=== PATIENT | male | born 1960 | race Caucasian/White ===

== ENCOUNTER → 2017-01-01 | Outpatient (CLI) | payer BC ==
[~2017-01-01] MED LIST: GADAVIST IV PRN
--- NOTE | 2017-01-01 08:52 | DIAGNOSTIC IMAGING REPORT ---
MRI OF THE BRAIN COMBO CLINICAL HISTORY: Memory loss. COMPARISON STUDY: No priors. TECHNIQUE: MRI of the brain was performed utilizing various T1 and T2-weighted sequences in the axial, sagittal, and coronal planes. Contrast-enhanced sequences were acquired following the administration of 10 cc of Gadavist. FINDINGS: Brain parenchyma: There is minimal patchy subcortical and periventricular microangiopathic disease. The brain parenchyma is otherwise normal in appearance. There is no hemorrhage or mass effect. There is no restricted diffusion to suggest acute ischemia. No enhancing mass lesion is identified on the postcontrast images. Johnson-white matter differentiation is preserved. No extra-axial fluid collection is seen. The cerebellar tonsils are normal in configuration. Ventricles, sulci, and cisterns: Normal in configuration. Pituitary and sella: Unremarkable. Intracranial vasculature: Normal flow voids are maintained at the skull base. Orbits: The bony orbits are grossly intact. Orbital contents are normal in appearance. Sinuses and mastoids: There is a tiny retention cyst in the left maxillary antrum. The remaining paranasal sinuses and mastoid air cells are clear. Calvarium: Unremarkable. Cervical cord: Partially visualized cervical spinal cord is normal in morphology and signal intensity. IMPRESSION: No acute intracranial abnormality. Electronically signed by: Tobin Logan M.D. 01/01/2017 8:50 AM Dictated Date/Time: 01/01/2017 8:47 AM
== END | disposition home or self-care (01) ==
LOC: C.MRIBC 07:53
PROVIDERS: ATTEND Psychiatry & Neurology Neurology
DX: I67.9 Cerebrovascular disease, unspecified (principal); R41.3 Other amnesia

== ENCOUNTER 2025-04-05 22:52 | Inpatient (IN) ==
[2025-04-05 23:34] LABS: Appearance Urine Clear (Clear); Glucose Urine UA Negative (Negative)
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
[2025-04-05 23:37] LABS: Hematocrit (blood only) 42.6 % (42.0-52.0); Hemoglobin 14.1 g/dl (14.0-18.0); Immature Granulocytes # (auto) 0.03 K/uL (0.01-0.20); Immature Granulocytes % (auto) 0.4 %; Mean Corpuscular Hemoglobin 30.0 pg (25.0-34.0); Mean Corpuscular Volume 90.6 fL (80.0-100.0); Platelet Count 206 K/uL (130-400); RDW Standard Deviation 47.2 fL (36.4-46.3); Red Blood Count 4.70 M/uL (4.70-6.10); White Blood Count 8.27 K/ul (4.8-10.8)
[2025-04-05 23:54] LABS: Alanine Aminotransferase 21.0 U/L (7-52); Albumin Globulin Ratio 1.8 (0.9-2); Albumin Level 4.6 gm/dl (3.4-5.0); Alkaline Phosphatase 52.0 U/L (34-104); Anion Gap 5.0 (3-11); Bilirubin,Total 0.4 mg/dl (0.2-1.0); Blood Urea Nitrogen 12.0 mg/dl (6-23); Calcium 9.2 mg/dl (8.6-10.3); Carbon Dioxide 30.0 mmol/L (21-32); Chloride 101.0 mmol/L (98-107); Creatinine Clr Calc Pharmacy 97.3 ml/min; Globulin 2.6 gm/dl (2.5-4.0); Glucose 75.0 mg/dl (70-99(Fasting)); Potassium 3.6 mmol/L (3.5-5.1); Sodium 136.0 mmol/L (136-145); Total Protein 7.2 gm/dl (6.0-8.3)
[2025-04-06] LABS: Acetaminophen < 3 ug/ml (10-30); Salicylate < 3.0 mg/dl (3.0-30)
[2025-04-06 00:09] LABS: Thyroid Stimulating Hormone 1.965 uIu/ml (0.300-4.500)
[2025-04-06 00:14] LABS: Amphetamines+Metham, Urine Neg (Neg); MDMA (Ecstacy), Urine Neg (Neg); Marijuana, Urine Neg (Neg)
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
[2025-04-06] MEDS ORDERED: ONDANSETRON INJ 2 MG/ML 2 ML VIAL IV PRN (02:31)
[2025-04-06] MEDS: DEXTROAMPHETAMINE/AMPHETAMINE ER 10 MG CAP PO SCH (09:32)
[2025-04-06] MEDS: ASPIRIN 81 MG ECTAB PO SCH (09:36)
[2025-04-06] MEDS: MEMANTINE HCL 10 MG TAB PO SCH (09:36)
[2025-04-06] MEDS: METOPROLOL SUCC 50MG EXT REL TAB PO SCH (09:37)
[2025-04-06] MEDS: DONEPEZIL HCL 10 MG TAB PO SCH (09:37)
[2025-04-06] MEDS: ROSUVASTATIN CALCIUM 20 MG TAB PO SCH (09:37)
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
[2025-04-06] MEDS: ARIPiprazole 5 MG TAB PO SCH (13:14)
[2025-04-06] MEDS: SERTRALINE HCL 50 MG TABLET PO SCH (13:14)
[2025-04-06] MEDS: LORazepam 0.5 MG TAB PO PRN (13:14)
--- NOTE | 2025-04-06 14:38 | Hospitalist Progress Note ---
Date of Service April 06, 2025 Assessment & Plan (1) Behavior safety risk: (2) Dementia: Plan 64yo male with early onset dementia presenting with increase in behavioral disturbance. 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 Patient does not have any complaints at present and does not wish to be here. He has cats at home and is worried about who will take care of them. #Behavior safety risk/Dementia - workup largely unremarkable. No obvious organic or reversible cause for patient's behavior disturbance. He does have a positive EtOH level Psych consult - see note for medication recommendations, Adderall discontinued. Clonidine recommended, not started yet to avoid too many med changes at one Started abilify 2.5mg BID, ativan 0.5mg TID prn for anxiety. Continue trazadone - consider dose increase if worsening insomnia Restart Zoloft - switch to AM dosing -PT/OT -Case management -One to one observation as needed -Continue Aricept and Namenda #Hypertension -Continue Amlodipine -Continue Lisinopril -Continue Metoprolol #Hyperlipidemia Continue Crestor Dispo; continued inpatient stay for medication adjustments DVT proh: SCD, low risk Admission and Anticipated Discharge Date Admission Date: April 06, 2025 Subjective Patient seen lying in bed in the ER - son is at bedside. Tomas is pleasant but very confused. Does know that he is in the hospital - thinks its 2005 speaks in circles, asking to go home and speak to Heavenly (who is his ex ) denies pain Review of Systems Review of Systems: All systems reviewed & are unremarkable except as noted in Subjective Physical Exam Physical Exam: General: NAD, VS as above Resp: normal respiratory effort, lungs clear to auscultation CV: RRR, no murmur, Abd: normal bowel sounds, non tender, no hepatosplenomegaly Extremities: Moves all extremities, no edema Neuro: A&O x1, pleasant and redirectable Results & Data Results & Data Vital Signs (Past 12 Hours) Vital Signs Pulse Resp BP Pulse Ox O2 Del Method 04/06/25 08:56 70 20 162/87 H 98 Room Air 04/06/25 07:47 79 18 116/70 98 Room Air 04/06/25 06:00 77 20 156/85 H 97 Room Air 04/06/25 03:30 139/78 04/06/25 03:00 77 20 139/79 97 Room Air Laboratory Results cbc and chemistry reviewed UA reviewed PG Care Time/CCT Total # of Minutes Spent Total Time Spent with Patient: Total time spent is greater than 50% in coordination of care (as documented) at patient's floor/unit and/or counseling patient: Coding Level of Care Code 83482 SUB INP/OBS CARE 2/35MIN Diagnoses Behavior safety risk Z91.89 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 G30.0; F02.A18 Dementia type: Alzheimer's Alzheimer's disease onset: early onset Dementia severity: mild Dementia behavioral or psychological symptom: with other behavioral disturbance (2) Dementia Dementia type: Alzheimer's Alzheimer's disease onset: early onset Dementia severity: mild Dementia behavioral or psychological symptom: with other behavioral disturbance Qualified Code(s): G30.0 - Alzheimer's disease with early onset; F02.A18 - Dementia in other diseases classified elsewhere, mild, with other behavioral disturbance
--- NOTE | 2025-04-06 21:17 | Electrocardiogram Report ---
Test Reason : Blood Pressure : */* mmHG Vent. Rate : 71 BPM Atrial Rate : 71 BPM P-R Int : 166 ms QRS Dur : 96 ms QT Int : 420 ms P-R-T Axes : -17 -12 -15 degrees QTcB Int : 456 ms Normal sinus rhythm Minimal voltage criteria for LVH, may be normal variant ( R in aVL ) Borderline ECG When compared with ECG of 15-Sep-2022 12:43, (unconfirmed) T wave inversion now evident in Inferior leads Confirmed by Dimas Valente ([id number]) on 04/06/2025 9:16:44 PM Referred By: REFERRED SELF Confirmed By: Dimas Valente
[2025-04-07 06:30] LABS: Hematocrit (blood only) 39.5 % (42.0-52.0); Hemoglobin 13.4 g/dl (14.0-18.0); Mean Corpuscular Hemoglobin 30.3 pg (25.0-34.0); Mean Corpuscular Volume 89.4 fL (80.0-100.0); Platelet Count 189 K/uL (130-400); RDW Standard Deviation 44.9 fL (36.4-46.3); Red Blood Count 4.42 M/uL (4.70-6.10); White Blood Count 5.62 K/ul (4.8-10.8)
[2025-04-07 06:54] LABS: Anion Gap 6.0 (3-11); Blood Urea Nitrogen 10.0 mg/dl (6-23); Calcium 8.7 mg/dl (8.6-10.3); Carbon Dioxide 30.0 mmol/L (21-32); Chloride 103.0 mmol/L (98-107); Creatinine Clr Calc Pharmacy 115.7 ml/min; Glucose 89.0 mg/dl (70-99(Fasting)); Potassium 3.7 mmol/L (3.5-5.1); Sodium 139.0 mmol/L (136-145)
--- NOTE | 2025-04-07 12:51 | Hospitalist Progress Note ---
Date of Service April 07, 2025 Assessment & Plan (1) Behavior safety risk: (2) Dementia: Plan 64yo male with early onset dementia presenting with increase in behavioral disturbance. 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 Patient does not have any complaints at present and does not wish to be here. He has cats at home and is worried about who will take care of them. #Behavior safety risk/Dementia - workup largely unremarkable. No obvious organic or reversible cause for patient's behavior disturbance. He does have a positive EtOH level Psych consult - see note for medication recommendations, Adderall discontinued. Clonidine recommended, not started yet to avoid too many med changes at one Started abilify 2.5mg BID, ativan 0.5mg TID prn for anxiety. Continue trazadone - consider dose increase if worsening insomnia Restart Zoloft - switch to AM dosing -PT/OT -Case management -One to one observation as needed -Continue Aricept and Namenda per psych: " abilify 2.5mg BID and can titrate up to 15mg total daily dose as consolidated or split dosing. ativan 0.5mg po TID prn for agitation (typically would avoid in dementia but given prominence of anxiety symptoms this may allow for lower dose of antipsychotic use) consider clonidine 0.1mg TD patch qweekly (off-label use for anxiety/agitation) Continue trazodone 50mg HS, if insomnia perists can increase to 100mg HS Restart prior to admission sertraline 150mg daily (had been taking as 50mg qAM and 100mg HS but possible it can contribute to insomnia so prefer morning dosing) Adderall discontinued as per PDMP he has not been taking this since September 2024 and this can increase anxiety and agitation For behavioral emergency: olanzapine 2.5 mg IM or 5mg IM x 1 (DO NOT exceed 10mg per 24 hours, check EKG if IM dose required, NEVER co-administer with IM or IV benzodiazepines). If he returns home, gun should be secured or ideally removed from the home" #Hypertension -Continue Amlodipine -Continue Lisinopril -Continue Metoprolol #Hyperlipidemia Continue Crestor Dispo; continued inpatient stay for medication adjustments DVT proh: SCD, low risk Admission and Anticipated Discharge Date Admission Date: April 06, 2025 Subjective no events reported overnight. He denies pain or any other symptoms. RN at bedside Review of Systems Review of Systems: Limited. Negative except as in HPI Physical Exam Physical Exam: General: NAD, VS as above Resp: normal respiratory effort, lungs clear to auscultation CV: RRR, no murmur, Abd: normal bowel sounds, non tender, no hepatosplenomegaly Extremities: Moves all extremities, no edema Neuro: A&O x1, pleasant and redirectable Results & Data Results & Data Vital Signs (Past 12 Hours) Vital Signs Temp Pulse Resp BP Pulse Ox O2 Del Method 04/07/25 07:45 36.7 C 89 18 137/92 98 Room Air PG Care Time/CCT Total # of Minutes Spent Total Time Spent with Patient: Total time spent is greater than 50% in coordination of care (as documented) at patient's floor/unit and/or counseling patient: Coding Level of Care Code 85141 SUB INP/OBS CARE 2/35MIN Diagnoses Behavior safety risk Z91.89 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
[2025-04-08] MEDS: CHECK CLONIDINE PATCH PLACEMENT SCH (08:50)
[2025-04-08] MEDS: REMOVE CLONIDINE PATCH SCH (09:38)
--- NOTE | 2025-04-08 10:27 | Hospitalist Progress Note ---
Date of Service April 08, 2025 Assessment & Plan (1) Behavior safety risk: (2) Dementia: Plan 64yo male with early onset dementia presenting with increase in behavioral disturbance. 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 Patient does not have any complaints at present and does not wish to be here. He has cats at home and is worried about who will take care of them. #Behavior safety risk/Dementia - workup largely unremarkable. No obvious organic or reversible cause for patient's behavior disturbance. He does have a positive EtOH level Psych consult - see note for medication recommendations, Adderall discontinued. Started abilify 2.5mg BID, ativan 0.5mg TID prn for anxiety. Continue trazadone - consider dose increase if worsening insomnia Restart Zoloft - switched to AM dosing Clonidine patch added 04/08 Case management -One to one observation as needed - elopement risk as desires to go home -Continue Aricept and Namenda #Hypertension -Continue Amlodipine -Continue Lisinopril -Continue Metoprolol #Hyperlipidemia Continue Crestor Dispo; continued inpatient stay for medication adjustments DVT proh: SCD, low risk Admission and Anticipated Discharge Date Admission Date: April 06, 2025 Subjective Patient seen ambulating around the halls with 1:1 able to be redirected to his room no acute complaints, wanting to go home to his cats Review of Systems Review of Systems: All systems reviewed & are unremarkable except as noted in Subjective Physical Exam Physical Exam: General: NAD, VS as above Resp: normal respiratory effort, lungs clear to auscultation CV: RRR, no murmur, Extremities: Moves all extremities, no edema Neuro: A&O x1, Skin: intact, no lesions noted Results & Data Results & Data Vital Signs (Past 12 Hours) Vital Signs Temp Pulse Resp BP Pulse Ox O2 Del Method 04/08/25 06:55 97.5 F L 81 20 156/77 H 97 Room Air 04/08/25 00:18 97.7 F 68 18 146/83 H 98 Room Air PG Care Time/CCT Total # of Minutes Spent Total Time Spent with Patient: Total time spent is greater than 50% in coordination of care (as documented) at patient's floor/unit and/or counseling patient: Coding Level of Care Code 16045 SUB INP/OBS CARE 2/35MIN Diagnoses Behavior safety risk Z91.89 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 G30.0; F02.A18 Dementia type: Alzheimer's Alzheimer's disease onset: early onset Dementia severity: mild Dementia behavioral or psychological symptom: with other behavioral distur bance (2) Dementia Dementia type: Alzheimer's Alzheimer's disease onset: early onset Dementia severity: mild Dementia behavioral or psychological symptom: with other behavioral disturbance Qualified Code(s): G30.0 - Alzheimer's disease with early onset; F02.A18 - Dementia in other diseases classified elsewhere, mild, with other behavioral disturbance
[2025-04-09] MEDS: ACETAMINOPHEN 325 MG TAB PO PRN (09:36)
--- NOTE | 2025-04-09 14:00 | Hospitalist Progress Note ---
Date of Service April 09, 2025 Assessment & Plan (1) Behavior safety risk: (2) Dementia: Plan 64yo male with early onset dementia presenting with increase in behavioral disturbance. 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 Patient does not have any complaints at present and does not wish to be here. He has cats at home and is worried about who will take care of them. #Behavior safety risk/Dementia - workup largely unremarkable. No obvious organic or reversible cause for patient's behavior disturbance. He does have a positive EtOH level Psych consult - see note for medication recommendations, Adderall discontinued. Started abilify 2.5mg BID, ativan 0.5mg TID prn for anxiety. Continue trazodone - consider dose increase if worsening insomnia Restart Zoloft - switched to AM dosing Clonidine patch added 04/08 Case management -One to one observation as needed - elopement risk as desires to go home -Continue Aricept and Namenda #Hypertension -Continue Amlodipine -Continue Lisinopril -Continue Metoprolol #Hyperlipidemia Continue Crestor Dispo; continued inpatient stay for medication adjustments and awaiting safe dispo plan DVT proh: SCD, low risk Admission and Anticipated Discharge Date Admission Date: April 06, 2025 Subjective Patient seen sitting in the chair in his room - 1:1 present at bedside. Patient is frustrated that he is unable to go home. Not wanting to engage in many activities because he is able to do those things at home Called daughter, Jackie for collateral. Reports that was signed 01/24/25 - he signed for himself and there was no oppositions. Jackie states that the behavior that we are reporting here are very different from what she heard from Heavenly. She confirms that Heavenly does not want to be contacted. There is not reason that the information about divorce should be withheld from Tomas, but Jackie reports that sometimes when he is asking about his , family thinks he is asking about his 1st /Jackie's mother. Review of Systems Review of Systems: All systems reviewed & are unremarkable except as noted in Subjective Physical Exam Physical Exam: General: NAD, VS as above Resp: normal respiratory effort, lungs clear to auscultation CV: RRR, no murmur, Extremities: Moves all extremities, no edema Neuro: A&O x1, Skin: intact, no lesions noted Results & Data Results & Data Vital Signs (Past 12 Hours) Vital Signs Temp Pulse Resp BP Pulse Ox O2 Del Method 04/09/25 07:01 97.9 F 73 16 127/77 98 Room Air PG Care Time/CCT Total # of Minutes Spent Total Time Spent with Patient: Total time spent is greater than 50% in coordination of care (as documented) at patient's floor/unit and/or counseling patient: Coding Level of Care Code 42800 SUB INP/OBS CARE 09/09MIN Diagnoses Behavior safety risk Z91.89 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 G30.0; F02.A18 Dementia type: Alzheimer's Alzheimer's disease onset: early onset Dementia severity: mild Dementia behavioral or psychological symptom: with other behavioral disturbance (2) Dementia Dementia type: Alzheimer's Alzheimer's disease onset: early onset Dementia severity: mild Dementia behavioral or psychological symptom: with other behavioral disturbance Qualified Code(s): G30.0 - Alzheimer's disease with early onset; F02.A18 - Dementia in other diseases classified elsewhere, mild, with other behavioral disturbance
--- NOTE | 2025-04-10 10:52 | Hospitalist Progress Note ---
Date of Service April 10, 2025 Assessment & Plan (1) Behavior safety risk: (2) Dementia: Plan 64yo male with early onset dementia presenting with increase in behavioral disturbance. 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 Patient does not have any complaints at present and does not wish to be here. He has cats at home and is worried about who will take care of them. #Behavior safety risk/Dementia - workup largely unremarkable. No obvious organic or reversible cause for patient's behavior disturbance. He does have a positive EtOH level Psych consult - see note for medication recommendations, Adderall discontinued. Started abilify 2.5mg BID, ativan 0.5mg TID prn for anxiety. Continue trazodone - consider dose increase if worsening insomnia Restart Zoloft - switched to AM dosing Clonidine patch added 04/08 Case management -One to one observation as needed - elopement risk as desires to go home -Continue Aricept and Namenda #Hypertension -Continue Amlodipine -Continue Lisinopril -Continue Metoprolol #Hyperlipidemia Continue Crestor Dispo; continued inpatient stay for medication adjustments and awaiting safe dispo plan DVT proh: SCD, low risk Admission and Anticipated Discharge Date Admission Date: April 06, 2025 Subjective Patient seen ambulating in the [facility] 1:1 nursing staff reports he has been asking to go home but has been pleasant Review of Systems Review of Systems: All systems reviewed & are unremarkable except as noted in Subjective Physical Exam Physical Exam: General: NAD, vitals as above, ambulating in the hall Pulm: breathing unlabored CV: well perfused extremities: moves all extremities Results & Data Results & Data Vital Signs (Past 12 Hours) Vital Signs Temp Pulse Resp BP Pulse Ox O2 Del Method 04/10/25 06:59 97.9 F 87 16 122/71 96 Room Air 04/09/25 23:46 97.7 F 70 18 126/73 96 Room Air PG Care Time/CCT Total # of Minutes Spent Total Time Spent with Patient: Total time spent is greater than 50% in coordination of care (as documented) at patient's floor/unit and/or counseling patient: Coding Level of Care Code 81236 SUB INP/OBS CARE 09/09MIN Diagnoses Behavior safety risk Z91.89 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 G30.0; F02.A18 Dementia type: Alzheimer's Alzheimer's disease onset: early onset Dementia severity: mild Dementia behavioral or psychological symptom: with other behavioral disturbance (2) Dementia Dementia type: Alzheimer's Alzheimer's disease onset: early onset Dementia severity: mild Dementia behavioral or psychological symptom: with other behavioral disturbance Qualified Code(s): G30.0 - Alzheimer's disease with early onset; F02.A18 - Dementia in other diseases classified elsewhere, mild, with other behavioral disturbance
[2025-04-10] MEDS: NICOTINE 14 MG/24 HR PATCH TD SCH (13:53)
[2025-04-11] MEDS: REMOVE NICODERM PATCH SCH (08:22)
--- NOTE | 2025-04-11 09:58 | Hospitalist Progress Note ---
Date of Service April 11, 2025 Assessment & Plan (1) Behavior safety risk: (2) Dementia: Plan 64yo male with early onset dementia presenting with increase in behavioral disturbance. 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 Patient does not have any complaints at present and does not wish to be here. He has cats at home and is worried about who will take care of them. #Behavior safety risk/Dementia - workup largely unremarkable. No obvious organic or reversible cause for patient's behavior disturbance. He does have a positive EtOH level Psych consult - see note for medication recommendations, Adderall discontinued. Started abilify 2.5mg BID, ativan 0.5mg TID prn for anxiety. Continue trazodone - consider dose increase if worsening insomnia Restart Zoloft - switched to AM dosing Clonidine patch added 04/08 Case management -One to one observation as needed - elopement risk as desires to go home -Continue Aricept and Namenda #Hypertension -Continue Amlodipine -Continue Lisinopril -Continue Metoprolol #Hyperlipidemia Continue Crestor Dispo; continued inpatient stay for medication adjustments and awaiting safe dispo plan DVT proh: SCD, low risk Admission and Anticipated Discharge Date Admission Date: April 06, 2025 Supervising Physician Co-Signing Physician Notes Attending Attestation: Chart reviewed, care plan d/w ERIBERTO Lawson. I agree w/ the iglesias components of her documentation. Anthony Enriquez MD Subjective patient seen in his room after getting dressed. Reports feeling well, ready to go for a walk Review of Systems Review of Systems: All systems reviewed & are unremarkable except as noted in Subjective Physical Exam Physical Exam: General: NAD, vitals as above, ambulating in the halls Pulm: breathing unlabored CV: well perfused extremities: moves all extremities Results & Data Results & Data Vital Signs (Past 12 Hours) Vital Signs Temp Pulse Pulse Resp BP BP Pulse Ox 04/11/25 07:28 97.9 F 76 16 126/73 96 04/10/25 22:48 97.7 F 60 18 126/78 96 O2 Del Method 04/11/25 07:28 Room Air 04/10/25 22:48 Room Air PG Care Time/CCT Total # of Minutes Spent Total Time Spent with Patient: Total time spent is greater than 50% in coordination of care (as documented) at patient's floor/unit and/or counseling patient: Coding Level of Care Code 14425 SUB INP/OBS CARE Diagnoses Behavior safety risk Z91.89 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
[2025-04-12] MEDS: FAMOTIDINE 20 MG TAB PO PRN (10:28)
--- NOTE | 2025-04-12 11:08 | Hospitalist Progress Note ---
Date of Service April 12, 2025 Assessment & Plan (1) Behavior safety risk: (2) Dementia: Plan 64yo male with early onset dementia presenting with increase in behavioral disturbance. 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 Patient does not have any complaints at present and does not wish to be here. He has cats at home and is worried about who will take care of them. #Behavior safety risk/Dementia - workup largely unremarkable. No obvious organic or reversible cause for patient's behavior disturbance. He does have a positive EtOH level Psych consult - see note for medication recommendations, Adderall discontinued. Started abilify 2.5mg BID, ativan 0.5mg TID prn for anxiety. Continue trazodone - consider dose increase if worsening insomnia Restart Zoloft - switched to AM dosing Clonidine patch added 04/08 Case management - no accepting facilities yet -One to one observation as needed - elopement risk as desires to go home -Continue Aricept and Namenda #Hypertension -Continue Amlodipine -Continue Lisinopril -Continue Metoprolol #Hyperlipidemia Continue Crestor Dispo; continued inpatient stay for medication adjustments and awaiting safe dispo plan DVT proh: SCD, low risk Admission and Anticipated Discharge Date Admission Date: April 06, 2025 Supervising Physician Co-Signing Physician Notes Attending Attestation: Chart reviewed, care plan d/w ERIBERTO Lawson. I agree w/ the iglesias components of her documentation. Anthony Enriquez MD Subjective Sitting in the chair - reporting no longer wanting to do this not sure who he lives with 1:1 at bedside Review of Systems Review of Systems: All systems reviewed & are unremarkable except as noted in Subjective Physical Exam Physical Exam: General: NAD, vitals as above, sititng in the chair Pulm: breathing unlabored CV: well perfused extremities: moves all extremities oriented to self only, plesant but a bit difficult to redirect Results & Data Results & Data Vital Signs (Past 12 Hours) Vital Signs Temp Pulse Resp BP Pulse Ox O2 Del Method 04/12/25 07:07 97.3 F L 83 17 135/75 98 Room Air PG Care Time/CCT Total # of Minutes Spent Total Time Spent with Patient: Total time spent is greater than 50% in coordination of care (as documented) at patient's floor/unit and/or counseling patient: Coding Level of Care Code 95287 SUB INP/OBS CARE 09/09MIN Diagnoses Behavior safety risk Z91.89 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
[2025-04-13] MEDS: OLANZAPINE 2.5 MG TAB PO STA (10:51)
--- NOTE | 2025-04-13 17:32 | Hospitalist Progress Note ---
Date of Service April 13, 2025 Assessment & Plan (1) Behavior safety risk: (2) Dementia: Plan 64yo male with early onset dementia presenting with increase in behavioral disturbance. Patient's soon-to-be ex- is his primary lean manufacturing engineer and is worried about his safety as well as hers. He is admitted for placement at a memory care facility. #Behavior safety risk | Dementia - workup largely unremarkable. No obvious organic or reversible cause for patient's behavior disturbance. He did have a positive EtOH level on admission. - Psych consult - see note for medication recommendations, Adderall discontinued - Started abilify 2.5mg BID, ativan 0.5mg TID prn for anxiety - Continue trazodone - consider dose increase if worsening insomnia - Restart Zoloft - switched to AM dosing - Continue Clonidine patch added 04/08 - Case management - no accepting facilities yet - One to one observation as needed - elopement risk as desires to go home - Continue Aricept and Namenda #Hypertension - Continue Amlodipine, Lisinopril, Metoprolol #Hyperlipidemia - Continue Crestor Dispo: Medically stable. Waiting placement in memory care facility. DVT proh: SCD, low risk Admission and Anticipated Discharge Date Admission Date: April 06, 2025 Supervising Physician Co-Signing Physician Notes Attending Attestation: Chart reviewed, care plan d/w ERIBERTO Lawson. I agree w/ the iglesias components of her documentation. Anthony Enriquez MD Subjective Patient seen and evaluated in his room with his 1:1 sitter present. He was a bit agitated this morning, requiring an additional dose of oral Zyprexa. He has been walking the halls frequently with his 1:1. He is somewhat redirectable. He reports "ehhh so-so" regarding his sleep. He does not have much of an appetite. No additional complaints or concerns at this time. Physical Exam Physical Exam: General: No acute distress. Pleasantly confused but can be somewhat difficult to redirect. Cardiac: Well-perfused. Rate in 70s. Pulm: Normal respiratory effort. 98% on room air. Neuro: A&O x 1 (self only). No focal neurological deficits. 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
--- NOTE | 2025-04-14 12:00 | Hospitalist Progress Note ---
"Date of Service April 14, 2025 Assessment & Plan (1) Behavior safety risk: (2) Dementia: Plan 64yo male with early onset dementia presenting with increase in behavioral disturbance. 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 He is admitted for placement at a memory care facility. #Behavior safety risk | Dementia - workup largely unremarkable. No obvious organic or reversible cause for patient's behavior disturbance. He did have a positive EtOH level on admission. - Psych consult - see note for medication recommendations, Adderall discontinued - Started abilify 2.5mg BID, ativan 0.5mg TID prn for anxiety - Continue trazodone - consider dose increase if worsening insomnia - Restart Zoloft - switched to AM dosing - Continue Clonidine patch added 04/08 - Case management - no accepting facilities yet - One to one observation as needed - elopement risk as desires to go home - Continue Aricept and Namenda #Hypertension - Continue Amlodipine, Lisinopril, Metoprolol #Hyperlipidemia - Continue Crestor Dispo: Medically stable. Waiting placement in memory care facility. DVT proh: SCD, low risk Admission and Anticipated Discharge Date Admission Date: April 06, 2025 Supervising Physician Co-Signing Physician Notes Attending Attestation: Chart reviewed, care plan d/w ERIBERTO Diaz. I agree w/ the iglesias components of her documentation. Anthony Enriquez MD Subjective Patient seen and evaluated in bedside chair while eating lunch with 1:1 sitter present. He reports feeling well, he is thoroughly enjoying his lunch today. He plans to watch some football this afternoon. RN reports he has not been as agitated today. No acute complaints or concerns at this time. Physical Exam Physical Exam: General: No acute distress. Pleasantly confused but can be somewhat difficult to redirect. Cardiac: Well-perfused. Rate in 70s. Pulm: Normal respiratory effort. 96% on room air. Neuro: A&O x 1 (self only). No focal neurological deficits. 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
--- NOTE | 2025-04-15 11:30 | Hospitalist Progress Note ---
"Date of Service April 15, 2025 Assessment & Plan (1) Behavior safety risk: (2) Dementia: Plan 64yo male with early onset dementia presenting with increase in behavioral disturbance. 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 He is admitted for placement at a memory care facility. #Behavior safety risk | Dementia - workup largely unremarkable. No obvious organic or reversible cause for patient's behavior disturbance. He did have a positive EtOH level on admission. - Psych consult - see note for medication recommendations, Adderall discontinued - Started abilify 2.5mg BID, ativan 0.5mg TID prn for anxiety - Continue trazodone - consider dose increase if worsening insomnia - Restart Zoloft - switched to AM dosing - Continue Clonidine patch added 04/08 - Case management - no accepting facilities yet - One to one observation as needed - elopement risk as desires to go home - Continue Aricept and Namenda #Hypertension - Continue Amlodipine, Lisinopril, Metoprolol #Hyperlipidemia - Continue Crestor Dispo: Medically stable. Waiting placement in memory care facility. DVT proh: SCD, low risk Admission and Anticipated Discharge Date Admission Date: April 06, 2025 Supervising Physician Co-Signing Physician Notes Attending Attestation: Chart reviewed, care plan d/w ERIBERTO Diaz. I agree w/ the iglesias components of her documentation. Anthony Enriquez MD Subjective Patient seen and evaluated in his room with 1:1 sitter present. He has been walking the halls this morning. He remains pleasantly confused and fairly redir ectable. Discussed with RN and there are no acute concerns. Patient denies any complaints at this time. Physical Exam Physical Exam: General: No acute distress. Pleasantly confused but can be somewhat difficult to redirect. Cardiac: Well-perfused. Rate in 70s. Pulm: Normal respiratory effort. 96% on room air. Neuro: A&O x 1 (self only). No focal neurological deficits. 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
[2025-04-16 09:31] LABS: Anion Gap 4 (3-11); Blood Urea Nitrogen 11 mg/dl (6-23); Calcium 9.6 mg/dl (8.6-10.3); Carbon Dioxide 32 mmol/L (21-32); Chloride 102 mmol/L (98-107); Creatinine Clr Calc Pharmacy 97.3 ml/min; Glucose 96 mg/dl (70-99(Fasting)); Magnesium 2.2 mg/dl (1.7-2.4); Potassium 4.4 mmol/L (3.5-5.1); Sodium 138 mmol/L (136-145); Uric Acid 4.3 mg/dl (2.6-7.2)
--- NOTE | 2025-04-16 09:35 | XRay Report ---
EXAM: Radiographs of the Right Knee 2 Views INDICATION: Stiffness. TECHNIQUE: Frontal and lateral views of the right knee. COMPARISON: No relevant prior studies available. FINDINGS: Bones/joints: There is moderate patellofemoral spurring and narrowing. There is mild spurring of the medial and lateral joint line and the anterior tibial plateau. There is a joint effusion. No fracture. No erosion. Soft tissues: No abnormality noted. No radiopaque foreign body noted. IMPRESSION: Joint effusion and mild to moderate tricompartment primary osteoarthritis most notably involving the patellofemoral joint. No acute osseous abnormality. ACT 112: N/A Electronically signed by Janey Newell 04-16-2025 09:35 AM
[2025-04-16] MEDS: CYANOCOBALAMIN (B-12) 500 MCG TABLET PO SCH (12:19)
--- NOTE | 2025-04-16 13:58 | Hospitalist Progress Note ---
"Date of Service April 16, 2025 Assessment & Plan (1) Behavior safety risk: (2) Dementia: (3) Osteoarthritis of right knee: (4) CAD (coronary artery disease): (5) Hypertension: Plan 64yo male with early onset dementia who presented with increase in behavioral disturbance. Patient's ex- was worried about his safety as well as hers. He was admitted for placement at a memory care facility. #Behavior safety risk | Dementia - - behavior improved; pleasant confusion only - positive EtOH level on admission - check B1 level in am tomorrow - checked B12 level today - 284; supplement vit B12 1000mcg daily - TSH 1.9 this admission - MRI brain early 2024 - chronic microvascular changes, but no hydrocephalus, ICH, or stroke - [address] John Benedict - concern for cognitive impairment even at that time, possibly related to long-standing ADD & mood d/o - appreciate Psych consult - -adderall discontinued -cont abilify 2.5mg BID -cont ativan 0.5mg TID prn for anxiety -cont trazodone HS -cont Zoloft 150mg qam -cont Clonidine patch - remains on aricept and Namenda for dementia #Hypertension - Continue Amlodipine, Lisinopril, Metoprolol; now also on clonidine patch #Hyperlipidemia - Continue Crestor #CAD - cont asa, metoprolol, crestor #Right knee OA - - no evidence clinically or by way of labs gout, pseudogout, septic knee -exam and x-rays c/w OA - ice prn - voltaren gel 4gm QID Dispo: memory care facility DVT proph: low risk, ambulating frequently in the hallways Admission and Anticipated Discharge Date Admission Date: April 06, 2025 Subjective patient walking the hallways staff noted his right knee was swollen today however, it doesn't seem to be bothering him during my visit with him he did not volunteer any complaints when I asked him if the right knee was bothering him he immediately got up from a chair and walked around the room eating well per staff Review of Systems Review of Systems: Unobtainable due to cognitive status Physical Exam Physical Exam: gen - NAD, pleasantly confused neck - no JVD heart - RRR, s1 s2, no murmur lungs - CTA b/l abd - soft NT ND BS+ ext - no peripheral edema, pulses b/l feet 2+ musculo - b/l knee OA changes; right knee with moderate effusion; not warm, not red, nontender to palpation; crepitus with passive ROM of R knee psych - oriented to person only Results & Data Results & Data Vital Signs (Past 12 Hours) Vital Signs Temp Pulse Resp BP Pulse Ox O2 Del Method 04/16/25 07:23 36.7 C 90 18 120/74 97 Room Air Laboratory Results Laboratory Results - last 24 hr 04/16/25 09:00 ESR 8 Sodium 138 Potassium 4.4 Chloride 102 Carbon Dioxide 32 Anion Gap 4 BUN 11 Creatinine 0.88 Est Cr Clr Drug Dosing 97.3 eGFR 97.22 BUN/Creatinine Ratio 12.5 Glucose 96 Uric Acid 4.3 Calcium 9.6 Magnesium 2.2 C-Reactive Protein < 0.50 Vitamin B12 284 Diagnostic Findings Knee X-Ray 04/16/25 08:21 EXAM: Radiographs of the Right Knee 2 Views INDICATION: Stiffness. TECHNIQUE: Frontal and lateral views of the right knee. COMPARISON: No relevant prior studies available. FINDINGS: Bones/joints: There is moderate patellofemoral spurring and narrowing. There is mild spurring of the medial and lateral joint line and the anterior tibial plateau. There is a joint effusion. No fracture. No erosion. Soft tissues: No abnormality noted. No radiopaque foreign body noted. IMPRESSION: Joint effusion and mild to moderate tricompartment primary osteoarthritis most notably involving the patellofemoral joint. No acute osseous abnormality. 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 G30.0; F02.A18 Alzheimer's disease onset: early onset Dementia behavioral or psychological symptom: with other behavioral disturbance Dementia severity: mild Dementia type: Alzheimer's Osteoarthritis of right knee M17.11 CAD (coronary artery disease) I25.10 Hypertension I10 (2) Dementia Alzheimer's disease onset: early onset Dementia behavioral or psychological symptom: with other behavioral disturbance Dementia severity: mild Dementia type: Alzheimer's Qualified Code(s): G30.0 - Alzheimer's disease with early onset; F02.A18 - Dementia in other diseases classified elsewhere, mild, with other behavioral disturbance"
[2025-04-16] MEDS: DICLOFENAC SOD 1% GEL 100 GM TUBE EXT SCH (16:51)
--- NOTE | 2025-04-17 19:57 | Hospitalist Progress Note ---
"Date of Service April 17, 2025 Assessment & Plan (1) Behavior safety risk: (2) Dementia: (3) Osteoarthritis of right knee: (4) CAD (coronary artery disease): (5) Hypertension: Plan 64yo male with early onset dementia who presented with increase in behavioral disturbance. Patient's ex- was worried about his safety as well as hers. He was admitted for placement at a memory care facility. #Behavior safety risk | Dementia - - behavior improved/stable; pleasant confusion only - positive EtOH level on admission - checked B1 level, sent/pending; while awaiting level --> thiamine 200mg BID - checked B12 level - 284; supplement vit B12 1000mcg daily x 4-6 months - TSH 1.9 this admission - MRI brain early 2024 - chronic microvascular changes, but no hydrocephalus, ICH, or stroke - [address] John Benedict - concern for cognitive impairment even at that time, possibly related to long-standing ADD & mood d/o - appreciate Psych consult - -adderall discontinued -cont Abilify 2.5mg BID -cont ativan 0.5mg TID prn for anxiety -cont Trazodone HS -cont Zoloft 150mg qam -cont Clonidine patch -cont zyprexa 5mg BID prn (most days he is needing such at least 1x) - remains on aricept and Namenda for dementia #Hypertension - Continue Amlodipine, Lisinopril, Metoprolol; now also on clonidine patch -controlled #Hyperlipidemia - Continue Crestor #CAD - cont asa, metoprolol, crestor -no obvious ischemic sx's #Right knee OA - - no evidence clinically or by way of labs gout, pseudogout, septic knee -exam and x-rays c/w OA - ice prn - voltaren gel 4gm QID - if effusion worsens or he has pain then obtain ortho consult for arthrocentesis +/- intra-articular steroid injection Dispo: memory care facility, appreciate SW assistance DVT proph: low risk, ambulating frequently in the hallways left message for pt's daughter, Jackie Keane, at # listed in chart -- today, 04/17/25 social work has been trying to connect with Ms Keane per their documentation as well Admission and Anticipated Discharge Date Admission Date: April 06, 2025 Subjective patient seen constantly walking the hallways he is typically accompanied with staff he is pleasantly confused and does not complaint of any issues staff report no acute concerns +stool eating well Review of Systems Review of Systems: patient denies chest pain, abd pain, and right knee pain Physical Exam Physical Exam: gen - NAD, pleasantly confused, walking around in the room and the hallway neck - no JVD heart - RRR, s1 s2, no murmur lungs - CTA b/l abd - soft NT ND BS+ ext - no peripheral edema, pulses b/l feet 2+ musculo - b/l knee OA changes; right knee with moderate effusion; still not warm, not red, and nontender to palpation; crepitus with passive ROM of R knee psych - oriented to person only Results & Data Results & Data Vital Signs (Past 12 Hours) Vital Signs Temp Pulse Resp BP Pulse Ox O2 Del Method 04/17/25 16:15 36.8 C 68 22 148/78 H 99 Room Air Laboratory Results Laboratory Results - last 24 hr 04/17/25 07:03 Whole Bld Vitamin B1 Pending PG Care Time/CCT Total # of Minutes Spent Total Time Spent with Patient: Total time spent is greater than 50% in coordination of care (as documented) at patient's floor/unit and/or counseling patient: Coding Level of Care Code 49406 SUB INP/OBS CARE 2/35MIN Diagnoses Behavior safety risk Z91.89 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 G30.0; F02.A18 Alzheimer's disease onset: early onset Dementia behavioral or psychological symptom: with other behavioral disturbance Dementia severity: mild Dementia type: Alzheimer's Osteoarthritis of right knee M17.11 CAD (coronary artery disease) I25.10 Hypertension I10 (2) Dementia Alzheimer's disease onset: early onset Dementia behavioral or psychological symptom: with other behavioral disturbance Dementia severity: mild Dementia type: Alzheimer's Qualified Code(s): G30.0 - Alzheimer's disease with early onset; F02.A18 - Dementia in other diseases classified elsewhere, mild, with other behavioral disturbance"
[2025-04-18] MEDS: THIAMINE HCL 100 MG TAB PO SCH (08:04)
--- NOTE | 2025-04-18 17:02 | Hospitalist Progress Note ---
"Date of Service April 18, 2025 Assessment & Plan (1) Behavior safety risk: (2) Dementia: (3) Osteoarthritis of right knee: (4) CAD (coronary artery disease): (5) Hypertension: Plan 64yo male with early onset dementia who presented with increase in behavioral disturbance. Patient's ex- was worried about his safety as well as hers. He was admitted for placement at a memory care facility. 04/18 - no change in patient, no change to medications made, awaiting placement at this time, continue redirection strategies frequent given risk of elopement, patient does not demonstrate capacity to leave and is unlikely to ever gain enough capacity for his medical decision making #Behavior safety risk | Dementia - - behavior improved/stable; pleasant confusion only - positive EtOH level on admission - checked B1 level, sent still pending; while awaiting level --> thiamine 200mg BID - checked B12 level - 284; supplement vit B12 1000mcg daily x 4-6 months - TSH 1.9 this admission - MRI brain early 2024 - chronic microvascular changes, but no hydrocephalus, ICH, or stroke - [address] John Benedict - concern for cognitive impairment even at that time, possibly related to long-standing ADD & mood d/o - appreciate Psych consult - -adderall discontinued -cont Abilify 2.5mg BID -cont ativan 0.5mg TID prn for anxiety -cont Trazodone HS -cont Zoloft 150mg qam -cont Clonidine patch -cont zyprexa 5mg BID prn (most days he is needing such at least 1x) - remains on aricept and Namenda for dementia #Hypertension - Continue Amlodipine, Lisinopril, Metoprolol; now also on clonidine patch -controlled #Hyperlipidemia - Continue Crestor #CAD - cont asa, metoprolol, crestor -no obvious ischemic sx's #Right knee OA - - no evidence clinically or by way of labs gout, pseudogout, septic knee -exam and x-rays c/w OA - ice prn - voltaren gel 4gm QID - if effusion worsens or he has pain then obtain ortho consult for arthrocentesis +/- intra-articular steroid injection Dispo: memory care facility, appreciate SW assistance DVT proph: low risk, ambulating frequently in the hallways Admission and Anticipated Discharge Date Admission Date: April 06, 2025 Subjective Patient awake and eating his meal. Unable to correctly tell me the year or where he is. Guesses the year is 2014 and tells me he is in the place for eating. Unaware of his diagnosis or why he is here - consistent with prior days per nursing and PA who previously looked after patient. Physical Exam Constitutional: WD/WN, vitals as above Neurologic: awake and + confused Psychiatric: Orientation: alert and oriented to person (knows his friend Don in the room); + not oriented to place and + not oriented to time Results & Data Results & Data Vital Signs (Past 12 Hours) Vital Signs Temp Pulse Resp BP Pulse Ox O2 Del Method 04/18/25 08:05 36.7 C 78 17 120/73 100 Room Air PG Care Time/CCT Total # of Minutes Spent Total Time Spent with Patient: Total time spent is greater than 50% in coordination of care (as documented) at patient's floor/unit and/or counseling patient: Coding Level of Care Code 32980 SUB INP/OBS CARE 09/09MIN Diagnoses Behavior safety risk Z91.89 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 G30.0; F02.A18 Alzheimer's disease onset: early onset Dementia behavioral or psychological symptom: with other behavioral disturbance Dementia severity: mild Dementia type: Alzheimer's Osteoarthritis of right knee M17.11 CAD (coronary artery disease) I25.10 Hypertension I10 (2) Dementia Alzheimer's disease onset: early onset Dementia behavioral or psychological symptom: with other behavioral disturbance Dementia severity: mild Dementia type: Alzheimer's Qualified Code(s): G30.0 - Alzheimer's disease with early onset; F02.A18 - Dementia in other diseases classified elsewhere, mild, with other behavioral disturbance"
--- NOTE | 2025-04-19 18:19 | Hospitalist Progress Note ---
"Date of Service April 19, 2025 Assessment & Plan (1) Behavior safety risk: (2) Dementia: (3) Osteoarthritis of right knee: (4) CAD (coronary artery disease): (5) Hypertension: Plan 64yo male with early onset dementia who presented with increase in behavioral disturbance. Patient's ex- was worried about his safety as well as hers. He was admitted for placement at a memory care facility. 04/19 - no change in patient, no change to medications made, awaiting placement at this time, continue redirection strategies frequent given risk of elopement, patient does not demonstrate capacity to leave and is unlikely to ever gain enough capacity for his medical decision making #Behavior safety risk | Dementia - - behavior improved/stable; pleasant confusion only - positive EtOH level on admission - checked B1 level, sent still pending; while awaiting level --> thiamine 200mg BID - checked B12 level - 284; supplement vit B12 1000mcg daily x 4-6 months - TSH 1.9 this admission - MRI brain early 2024 - chronic microvascular changes, but no hydrocephalus, ICH, or stroke - [address] John Benedict - concern for cognitive impairment even at that time, possibly related to long-standing ADD & mood d/o - appreciate Psych consult - -adderall discontinued -cont Abilify 2.5mg BID -cont ativan 0.5mg TID prn for anxiety -cont Trazodone HS -cont Zoloft 150mg qam -cont Clonidine patch -cont zyprexa 5mg BID prn (most days he is needing such at least 1x) - remains on aricept and Namenda for dementia #Hypertension - Continue Amlodipine, Lisinopril, Metoprolol; now also on clonidine patch -controlled #Hyperlipidemia - Continue Crestor #CAD - cont asa, metoprolol, crestor -no obvious ischemic sx's #Right knee OA - - no current pain Dispo: remains medically stable for discharge pending placement to memory care facility, appreciate SW assistance DVT proph: low risk, ambulating frequently in the hallways Admission and Anticipated Discharge Date Admission Date: April 06, 2025 Subjective Patient awake and standing in room. We discussed his right knee which he initially indicated might be bothering him at the back but he then reported no pain. Does not remember me from yesterday. No new concerns or questions. Physical Exam Musculoskeletal: Right knee with mild effusion without erythema or swelling, non tender joint line, normal active flexion/extension without pain and normal abulation Psychiatric: Orientation: alert; + not oriented to place and + not oriented to time Results & Data Results & Data Vital Signs (Past 12 Hours) Vital Signs Temp Pulse Resp BP Pulse Ox O2 Del Method 04/19/25 15:06 37 C 85 16 103/68 94 Room Air 04/19/25 07:45 Room Air 04/19/25 06:49 36.5 C 64 16 126/75 97 Room Air PG Care Time/CCT Total # of Minutes Spent Total Time Spent with Patient: Total time spent is greater than 50% in coordination of care (as documented) at patient's floor/unit and/or counseling patient: Coding Level of Care Code 04924 SUB INP/OBS CARE 09/09MIN Diagnoses Behavior safety risk Z91.89 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 G30.0; F02.A18 Dementia type: Alzheimer's Alzheimer's disease onset: early onset Dementia severity: mild Dementia behavioral or psychological symptom: with other behavioral disturbance Osteoarthritis of right knee M17.11 CAD (coronary artery disease) I25.10 Hypertension I10 (2) Dementia Dementia type: Alzheimer's Alzheimer's disease onset: early onset Dementia severity: mild Dementia behavioral or psychological symptom: with other behavioral disturbance Qualified Code(s): G30.0 - Alzheimer's disease with early onset; F02.A18 - Dementia in other diseases classified elsewhere, mild, with other behavioral disturbance"
--- NOTE | 2025-04-20 09:35 | Hospitalist Progress Note ---
"Date of Service April 20, 2025 Assessment & Plan (1) Behavior safety risk: (2) Dementia: (3) Osteoarthritis of right knee: (4) CAD (coronary artery disease): (5) Hypertension: Plan 64yo male with early onset dementia who presented with increase in behavioral disturbance. Patient's ex- was worried about his safety as well as hers. He was admitted for placement at a memory care facility. 04/20 - no change in patient, diclofenac gel made PRN otherwise no med changes, aw aiting placement at this time, continue redirection strategies frequent given risk of elopement but appears very calm presently, patient does not demonstrate capacity to leave and is unlikely to ever gain enough capacity for his medical decision making #Behavior safety risk | Dementia - - behavior improved/stable; pleasant confusion only - positive EtOH level on admission - checked B1 level, sent still pending; while awaiting level --> thiamine 200mg BID - checked B12 level - 284; supplement vit B12 1000mcg daily x 4-6 months - TSH 1.9 this admission - MRI brain early 2024 - chronic microvascular changes, but no hydrocephalus, ICH, or stroke - [address] John Benedict - concern for cognitive impairment even at that time, possibly related to long-standing ADD & mood d/o - appreciate Psych consult - -adderall discontinued -cont Abilify 2.5mg BID -cont ativan 0.5mg TID prn for anxiety -cont Trazodone HS -cont Zoloft 150mg qam -cont Clonidine patch -cont zyprexa 5mg BID prn (most days he is needing such at least 1x although none given 04/19) - remains on aricept and Namenda for dementia #Hypertension - Continue Amlodipine, Lisinopril, Metoprolol; now also on clonidine patch -controlled #Hyperlipidemia - Continue Crestor #CAD - cont asa, metoprolol, crestor -no obvious ischemic sx's #Right knee OA - - no current pain, diclofenac gel made PRN Dispo: remains medically stable for discharge pending placement to memory care facility, appreciate SW assistance DVT proph: low risk, ambulating frequently in the hallways Admission and Anticipated Discharge Date Admission Date: April 06, 2025 Subjective Patient awake, sitting in chair. Does not remember me. Does not remember [place] visiting him on Wednesday - reports he hasn't seen him in years and doesn't think he would recognize him if he saw him. Orientated only to self. No concerns or questions. Physical Exam Constitutional: WD/WN, vitals as above Psychiatric: Orientation: alert and oriented to person (self only); + not oriented to place and + not oriented to time Results & Data Results & Data Vital Signs (Past 12 Hours) Vital Signs Temp Pulse Pulse Resp BP Pulse Ox O2 Del Method 04/20/25 07:28 36.8 C 71 18 142/82 H 97 Room Air 04/19/25 21:31 36.6 C 72 18 125/71 96 Room Air PG Care Time/CCT Total # of Minutes Spent Total Time Spent with Patient: Total time spent is greater than 50% in coordination of care (as documented) at patient's floor/unit and/or counseling patient: Coding Level of Care Code 14525 SUB INP/OBS CARE 09/09MIN Diagnoses Behavior safety risk Z91.89 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 G30.0; F02.A18 Dementia type: Alzheimer's Alzheimer's disease onset: early onset Dementia severity: mild Dementia behavioral or psychological symptom: with other behavioral disturbance Osteoarthritis of right knee M17.11 CAD (coronary artery disease) I25.10 Hypertension I10 (2) Dementia Dementia type: Alzheimer's Alzheimer's disease onset: early onset Dementia severity: mild Dementia behavioral or psychological symptom: with other behavioral disturbance Qualified Code(s): G30.0 - Alzheimer's disease with early onset; F02.A18 - Dementia in other diseases classified elsewhere, mild, with other behavioral disturbance"
--- NOTE | 2025-04-21 15:59 | Hospitalist Progress Note ---
"Date of Service April 21, 2025 Assessment & Plan (1) Behavior safety risk: (2) Dementia: (3) Osteoarthritis of right knee: (4) CAD (coronary artery disease): (5) Hypertension: Plan 64yo male with early onset dementia who presented with increase in behavioral disturbance. Patient's ex- was worried about his safety as well as hers. He was admitted for placement at a memory care facility. 04/21 - nosignificant change other than thiamine level back, reduced thiamine to 1 00mg PO daily #Behavior safety risk | Dementia - - behavior improved/stable; pleasant confusion only - positive EtOH level on admission - checked B1 level normal, thiamine to 100mg PO daily - checked B12 level - 284; supplement vit B12 1000mcg daily x 4-6 months - TSH 1.9 this admission - MRI brain early 2024 - chronic microvascular changes, but no hydrocephalus, ICH, or stroke - [address] John Benedict - concern for cognitive impairment even at that time, possibly related to long-standing ADD & mood d/o - appreciate Psych consult - -adderall discontinued -cont Abilify 2.5mg BID -cont ativan 0.5mg TID prn for anxiety -cont Trazodone HS -cont Zoloft 150mg qam -cont Clonidine patch -cont zyprexa 5mg BID prn (only one dose given yeseterday) - remains on aricept and Namenda for dementia #Hypertension - Continue Amlodipine, Lisinopril, Metoprolol; now also on clonidine patch -controlled #Hyperlipidemia - Continue Crestor #CAD - cont asa, metoprolol, crestor -no obvious ischemic sx's #Right knee OA - - no current pain, diclofenac gel PRN Dispo: remains medically stable for discharge pending placement to memory care facility, appreciate SW assistance DVT proph: low risk, ambulating frequently in the hallways Admission and Anticipated Discharge Date Admission Date: April 06, 2025 Subjective Patient seen wandering the corridor. No new complaints. Physical Exam Psychiatric: Orientation: alert and oriented to person (self); + not oriented to place and + not oriented to time Results & Data Results & Data Vital Signs (Past 12 Hours) Vital Signs Temp Pulse Resp BP BP Pulse Ox O2 Del Method 04/21/25 13:00 36.9 C 77 18 134/76 97 Room Air 04/21/25 07:00 36.9 C 91 H 19 147/85 H Room Air PG Care Time/CCT Total # of Minutes Spent Total Time Spent with Patient: Total time spent is greater than 50% in coordination of care (as documented) at patient's floor/unit and/or counseling patient: Coding Level of Care Code 37167 SUB INP/OBS CARE 09/09MIN Diagnoses Behavior safety risk Z91.89 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 G30.0; F02.A18 Dementia type: Alzheimer's Alzheimer's disease onset: early onset Dementia severity: mild Dementia behavioral or psychological symptom: with other behavioral disturbance Osteoarthritis of right knee M17.11 CAD (coronary artery disease) I25.10 Hypertension I10 (2) Dementia Dementia type: Alzheimer's Alzheimer's disease onset: early onset Dementia severity: mild Dementia behavioral or psychological symptom: with other behavioral disturbance Qualified Code(s): G30.0 - Alzheimer's disease with early onset; F02.A18 - Dementia in other diseases classified elsewhere, mild, with other behavioral disturbance"
[2025-04-22] MEDS: THIAMINE HCL 100 MG TAB PO SCH (08:01)
--- NOTE | 2025-04-22 18:16 | Hospitalist Progress Note ---
"Date of Service April 22, 2025 Assessment & Plan (1) Behavior safety risk: (2) Dementia: (3) Osteoarthritis of right knee: (4) CAD (coronary artery disease): (5) Hypertension: Plan 64yo male with early onset dementia who presented with increase in behavioral disturbance. Patient's ex- was worried about his safety as well as hers. He was admitted for placement at a memory care facility. 04/22 - no changes made, awaiting placement at this time #Behavior safety risk | Dementia - - behavior improved/stable; pleasant confusion only - positive EtOH level on admission - checked B1 level normal, thiamine to 100mg PO daily - checked B12 level - 284; supplement vit B12 1000mcg daily x 4-6 months - TSH 1.9 this admission - MRI brain early 2024 - chronic microvascular changes, but no hydrocephalus, ICH, or stroke - [address] John Benedict - concern for cognitive impairment even at that time, possibly related to long-standing ADD & mood d/o - appreciate Psych consult - -adderall discontinued -cont Abilify 2.5mg BID -cont ativan 0.5mg TID prn for anxiety -cont Trazodone HS -cont Zoloft 150mg qam -cont Clonidine patch -cont zyprexa 5mg BID prn (none given 04/21) - remains on aricept and Namenda for dementia #Hypertension - Continue Amlodipine, Lisinopril, Metoprolol; now also on clonidine patch -controlled #Hyperlipidemia - Continue Crestor #CAD - cont asa, metoprolol, crestor -no obvious ischemic sx's #Right knee OA - - no current pain, diclofenac gel PRN Dispo: remains medically stable for discharge pending placement to memory care facility, appreciate SW assistance DVT proph: low risk, ambulating frequently in the hallways Admission and Anticipated Discharge Date Admission Date: April 06, 2025 Subjective Walked with patient around the [place]. Pleasantly confused. No complaints. 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 G30.0; F02.A18 Dementia type: Alzheimer's Alzheimer's disease onset: early onset Dementia severity: mild Dementia behavioral or psychological symptom: with other behavioral disturbance Osteoarthritis of right knee M17.11 CAD (coronary artery disease) I25.10 Hypertension I10 (2) Dementia Dementia type: Alzheimer's Alzheimer's disease onset: early onset Dementia severity: mild Dementia behavioral or psychological symptom: with other behavioral disturbance Qualified Code(s): G30.0 - Alzheimer's disease with early onset; F02.A18 - Dementia in other diseases classified elsewhere, mild, with other behavioral disturbance"
--- NOTE | 2025-04-23 11:25 | Hospitalist Progress Note ---
"Date of Service April 23, 2025 Assessment & Plan (1) Behavior safety risk: (2) Dementia: (3) Osteoarthritis of right knee: (4) CAD (coronary artery disease): (5) Hypertension: Plan 64yo male with early onset dementia who presented with increase in behavioral disturbance. Patient's ex- was worried about his safety as well as hers. He was admitted for placement at a memory care facility. 04/23 - no changes made, skin lesions noted, awaiting placement at this time #Behavior safety risk | Dementia - - behavior improved/stable; pleasant confusion only - positive EtOH level on admission - checked B1 level normal, thiamine to 100mg PO daily - checked B12 level - 284; supplement vit B12 1000mcg daily x 4-6 months - TSH 1.9 this admission - MRI brain early 2024 - chronic microvascular changes, but no hydrocephalus, ICH, or stroke - [address] John Benedict - concern for cognitive impairment even at that time, possibly related to long-standing ADD & mood d/o - appreciate Psych consult - -adderall discontinued -cont Abilify 2.5mg BID -cont ativan 0.5mg TID prn for anxiety -cont Trazodone HS -cont Zoloft 150mg qam -cont Clonidine patch -cont zyprexa 5mg BID prn (in general getting 0-1 dose more recently) - remains on aricept and Namenda for dementia #Skin lesions Bilateral forearms, recommend dermatology follow up #Hypertension - Continue Amlodipine, Lisinopril, Metoprolol; now also on clonidine patch -controlled #Hyperlipidemia - Continue Crestor #CAD - cont asa, metoprolol, crestor -no obvious ischemic sx's #Right knee OA - - no current pain, diclofenac gel PRN Dispo: remains medically stable for discharge pending placement to memory care facility, appreciate SW assistance DVT proph: low risk, ambulating frequently in the hallways Admission and Anticipated Discharge Date Admission Date: April 06, 2025 Subjective Patient reports he remembers me but then on asking what we have been doing he reports we were throwing shots. No complaints. Physical Exam Constitutional: WD/WN, vitals as above Skin: Skin lesions present on b/l forearms without surrounding erythema Results & Data Results & Data Vital Signs (Past 12 Hours) Vital Signs Temp Pulse Resp BP BP Pulse Ox O2 Del Method 04/23/25 10:20 36.6 C 76 18 141/87 H 100 Room Air 04/23/25 08:30 Room Air 04/23/25 03:00 36.5 C 68 16 153/80 H 99 Room Air PG Care Time/CCT Total # of Minutes Spent Total Time Spent with Patient: Total time spent is greater than 50% in coordination of care (as documented) at patient's floor/unit and/or counseling patient: Coding Level of Care Code 79217 SUB INP/OBS CARE 09/09MIN Diagnoses Behavior safety risk Z91.89 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 G30.0; F02.A18 Dementia type: Alzheimer's Alzheimer's disease onset: early onset Dementia severity: mild Dementia behavioral or psychological symptom: with other behavioral disturbance Osteoarthritis of right knee M17.11 CAD (coronary artery disease) I25.10 Hypertension I10 (2) Dementia Dementia type: Alzheimer's Alzheimer's disease onset: early onset Dementia severity: mild Dementia behavioral or psychological symptom: with other behavioral disturbance Qualified Code(s): G30.0 - Alzheimer's disease with early onset; F02.A18 - Dementia in other diseases classified elsewhere, mild, with other behavioral disturbance"
--- NOTE | 2025-04-24 19:34 | Hospitalist Progress Note ---
"Date of Service April 24, 2025 Assessment & Plan (1) Behavior safety risk: (2) Dementia: (3) Osteoarthritis of right knee: (4) CAD (coronary artery disease): (5) Hypertension: Plan 64yo male with early onset dementia who presented with increase in behavioral disturbance. Patient's ex- was worried about his safety as well as hers. He was admitted for placement at a memory care facility. 04/24 - no changes made, monitor skin on chin as looks like he has been scratching it open, awaiting placement at this time #Behavior safety risk | Dementia - - behavior improved/stable; pleasant confusion only - positive EtOH level on admission - checked B1 level normal, thiamine to 100mg PO daily - checked B12 level - 284; supplement vit B12 1000mcg daily x 4-6 months - TSH 1.9 this admission - MRI brain early 2024 - chronic microvascular changes, but no hydrocephalus, ICH, or stroke - [address] John Benedict - concern for cognitive impairment even at that time, possibly related to long-standing ADD & mood d/o - appreciate Psych consult - -adderall discontinued -cont Abilify 2.5mg BID -cont ativan 0.5mg TID prn for anxiety -cont Trazodone HS -cont Zoloft 150mg qam -cont Clonidine patch -cont zyprexa 5mg BID prn (in general getting 0-1 dose more recently) - remains on aricept and Namenda for dementia #Skin lesions Bilateral forearms, recommend dermatology follow up Scratching chin causing open lesion - monitor #Hypertension - Continue Amlodipine, Lisinopril, Metoprolol; now also on clonidine patch -controlled #Hyperlipidemia - Continue Crestor #CAD - cont asa, metoprolol, crestor -no obvious ischemic sx's #Right knee OA - - no current pain, diclofenac gel PRN Dispo: remains medically stable for discharge pending placement to memory care facility, appreciate SW assistance DVT proph: low risk, ambulating frequently in the hallways Admission and Anticipated Discharge Date Admission Date: April 06, 2025 Subjective Patient seen walking the halls as per usual. No complaints. Physical Exam Constitutional: WD/WN, vitals as above Neurologic: awake and + confused Psychiatric: Orientation: alert and oriented to person; + not oriented to place and + not oriented to time Results & Data Results & Data Vital Signs (Past 12 Hours) Vital Signs Temp Pulse Resp BP Pulse Ox O2 Del Method 04/24/25 14:45 36.6 C 71 16 97/61 L 97 Room Air 04/24/25 08:12 106/68 04/24/25 07:43 Room Air PG Care Time/CCT Total # of Minutes Spent Total Time Spent with Patient: Total time spent is greater than 50% in coordination of care (as documented) at patient's floor/unit and/or counseling patient: Coding Level of Care Code 60018 SUB INP/OBS CARE 09/09MIN Diagnoses Behavior safety risk Z91.89 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 G30.0; F02.A18 Alzheimer's disease onset: early onset Dementia behavioral or psychological symptom: with other behavioral disturbance Dementia severity: mild Dementia type: Alzheimer's Osteoarthritis of right knee M17.11 CAD (coronary artery disease) I25.10 Hypertension I10 (2) Dementia Alzheimer's disease onset: early onset Dementia behavioral or psychological symptom: with other behavioral disturbance Dementia severity: mild Dementia type: Alzheimer's Qualified Code(s): G30.0 - Alzheimer's disease with early onset; F02.A18 - Dementia in other diseases classified elsewhere, mild, with other behavioral disturbance"
[2025-04-25] MEDS ORDERED: ARIPiprazole 5 MG TAB PO ONE (09:12)
[2025-04-25] MEDS ORDERED: ARIPiprazole 5 MG TAB PO SCH (09:15)
[2025-04-25] MEDS: ARIPiprazole 5 MG TAB PO ONE (09:31)
--- NOTE | 2025-04-25 14:28 | Hospitalist Progress Note ---
"Date of Service April 25, 2025 Assessment & Plan (1) Behavior safety risk: (2) Dementia: (3) CAD (coronary artery disease): (4) Hypertension: Plan 64yo male with early onset dementia who presented with increase in behavioral disturbance. Patient's ex- was worried about his safety as well as hers. He was admitted for placement at a memory care facility. #Behavior safety risk | Dementia - - behavior improved/stable; pleasant confusion only but is still receiving prn Zyprexa 1-2 times daily while on lowest dose of Abilify - positive EtOH level on admission - checked B1 level normal, thiamine to 100mg PO daily - checked B12 level - 284; supplement vit B12 1000mcg daily x 4-6 months - TSH 1.9 this admission - MRI brain early 2024 - chronic microvascular changes, but no hydrocephalus, ICH, or stroke - [address] John Benedict - concern for cognitive impairment even at that time, possibly related to long-standing ADD & mood d/o - appreciate Psych consult --adderall discontinued, started Abilify, ativan, trazodone, clonidine -increase Abilify to 5mg BID and can titrate up to max 15mg total daily dose -cont ativan 0.5mg TID prn for anxiety-seems to be getting this fairly regularly -cont Trazodone HS -cont Zoloft 150mg qam -cont Clonidine patch -dc prn Zyprexa and would only use IM dose if severe agitation - remains on aricept and Namenda for dementia #Skin lesions Bilateral forearms, recommend dermatology follow up Scratching chin causing open lesion - monitor-no infection #Hypertension - BPs controlled -Continue Amlodipine, Lisinopril, Metoprolol; now also on clonidine patch #Hyperlipidemia - Continue Crestor #CAD -no acute issues - cont asa, metoprolol, crestor, lisinopril #Right knee OA - xrays show OA - no current pain, diclofenac gel PRN DVT proph: low risk, ambulating frequently in the hallways Dispo: remains medically stable for discharge pending placement to memory care facility, appreciate SW assistance Admission and Anticipated Discharge Date Admission Date: April 06, 2025 Subjective Pt seen while walking halls with RN. Denies any problems. Physical Exam Constitutional: WD/WN, vitals as above Respiratory: normal respiratory effort Skin: + lesion (superficial open wund chin,sca nt bloody drainage,no erythema) Psychiatric: Orientation: alert, oriented to person and cooperative; + not oriented to place and + not oriented to time Results & Data Results & Data Vital Signs (Past 12 Hours) Vital Signs Temp Pulse Resp BP Pulse Ox O2 Del Method 04/25/25 08:15 37.0 C 71 18 103/65 97 Room Air PG Care Time/CCT Total # of Minutes Spent Total Time Spent with Patient: Total time spent is greater than 50% in coordination of care (as documented) at patient's floor/unit and/or counseling patient: Coding Level of Care Code 58619 SUB INP/OBS CARE 09/09MIN Diagnoses Behavior safety risk Z91.89 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
[2025-04-25] MEDS: ARIPiprazole 5 MG TAB PO SCH (19:52)
--- NOTE | 2025-04-26 16:50 | Hospitalist Progress Note ---
"Date of Service April 26, 2025 Assessment & Plan (1) Behavior safety risk: (2) Dementia: (3) CAD (coronary artery disease): (4) Hypertension: Plan 64yo male with early onset dementia who presented with increase in behavioral disturbance. Patient's ex- was worried about his safety as well as hers. He was admitted for placement at a memory care facility. #Behavior safety risk | Dementia - - behavior improved/stable; pleasant confusion only and not receiving any as needed antipsychotics, only an occasional as needed Ativan - positive EtOH level on admission - checked B1 level normal, thiamine to 100mg PO daily - checked B12 level - 284; supplement vit B12 1000mcg daily x 4-6 months - TSH 1.9 this admission - MRI brain early 2024 - chronic microvascular changes, but no hydrocephalus, ICH, or stroke - [address] John Benedict - concern for cognitive impairment even at that time, possibly related to long-standing ADD & mood d/o - appreciate Psych consult --adderall discontinued, started Abilify, ativan, trazodone, clonidine -increased Abilify to 5mg BID on 04/25 and can titrate up to max 15mg total daily dose if needed -cont ativan 0.5mg TID prn for anxiety-seems to be getting this at least once to twice per day -cont Trazodone HS -cont Zoloft 150mg qam -cont Clonidine patch - Would only use Zyprexa IM dose if severe agitation - remains on aricept and Namenda for dementia #Skin lesions Bilateral forearms, recommend dermatology follow up Scratching chin causing open lesion - monitor-no infection #Hypertension - BPs controlled -Continue Amlodipine, Lisinopril, Metoprolol; now also on clonidine patch #Hyperlipidemia - Continue Crestor #CAD -no acute issues - cont asa, metoprolol, crestor, lisinopril #Right knee OA - xrays show OA - no current pain, diclofenac gel PRN DVT proph: low risk, ambulating frequently in the hallways all day long Dispo: remains medically stable for discharge pending placement to memory care facility, appreciate SW assistance Admission and Anticipated Discharge Date Admission Date: April 06, 2025 Subjective Patient seen in his room about to eat dinner. He is very pleasant and answers questions appropriately. Says he is moving his bowels regularly. Physical Exam Constitutional: WD/WN, vitals as above Respiratory: normal respiratory effort, lungs clear to auscultation Cardiovascular: RRR, no murmur, no edema Skin: + lesion (superficial open wund chin,sca nt bloody drainage,no erythema) Psychiatric: Orientation: alert, oriented to person and cooperative; + not oriented to place and + not oriented to time Results & Data Results & Data Vital Signs (Past 12 Hours) Vital Signs Temp Pulse Resp BP BP Pulse Ox O2 Del Method 04/26/25 14:53 36.5 C 65 18 133/85 97 Room Air 04/26/25 07:34 36.7 C 64 18 129/78 100 Room Air PG Care Time/CCT Total # of Minutes Spent Total Time Spent with Patient: Total time spent is greater than 50% in coordination of care (as documented) at patient's floor/unit and/or counseling patient: Coding Level of Care Code 97711 SUB INP/OBS CARE 09/09MIN Diagnoses Behavior safety risk Z91.89 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
--- NOTE | 2025-04-27 18:59 | Hospitalist Progress Note ---
Date of Service April 27, 2025 Assessment & Plan (1) Behavior safety risk: Plan: Observe. (2) Dementia: Plan: Continue supportive care with gentle re-direction, frequent re-assurance, aripiprazole 5mg PO bid, donepezil 10mg PO daily, memantine 10mg PO qam. (3) CAD (coronary artery disease): Plan: Continue secondary prophylaxis against CAD utilizing ASA 81mg PO daily and rosuvastatin 20mg PO daily. (4) Hypertension: Plan: Continue home-scheduled amlodipine 10mg PO daily, clonidine 0.1mg transdermal patch q7d, lisinopril 5mg PO daily, metoprolol succinate 50mg PO daily. (5) Tobacco abuse: Plan: Smoking cessation counselling 16 minutes given. Patient agrees to quit smoking tobacco while in [facility]. Patient accepts offer of nicotine replacement utilizing nicotine patch 14mg transdermal daily. (6) Major depression: Plan: Mild. No suicidal ideation. Asymptomatic on sertraline 150mg PO qam. (7) Insomnia disorder: Plan: Asymptomatic on trazodone 50mg PO qhs. (8) Anxiety: Plan: Asymptomatic on lorazepam 0.5mg PO tid prn anxiety. Plan 64yo male with early onset dementia who presented with increase in behavioral disturbance. Patient's ex- was worried about his safety as well as hers. He was admitted for placement at a memory care facility. #Behavior safety risk | Dementia - - behavior improved/stable; pleasant confusion only and not receiving any as needed antipsychotics, only an occasional as needed Ativan - positive EtOH level on admission - checked B1 level normal, thiamine to 100mg PO daily - checked B12 level - 284; supplement vit B12 1000mcg daily x 4-6 months - TSH 1.9 this admission - MRI brain early 2024 - chronic microvascular changes, but no hydrocephalus, ICH, or stroke - [address] John Benedict - concern for cognitive impairment even at that time, possibly related to long-standing ADD & mood d/o - appreciate Psych consult --adderall discontinued, started Abilify, ativan, trazodone, clonidine -increased Abilify to 5mg BID on 04/25 and can titrate up to max 15mg total daily dose if needed -cont ativan 0.5mg TID prn for anxiety-seems to be getting this at least once to twice per day -cont Trazodone HS -cont Zoloft 150mg qam -cont Clonidine patch - Would only use Zyprexa IM dose if severe agitation - remains on aricept and Namenda for dementia #Skin lesions Bilateral forearms, recommend dermatology follow up Scratching chin causing open lesion - monitor-no infection #Hypertension - BPs controlled -Continue Amlodipine, Lisinopril, Metoprolol; now also on clonidine patch #Hyperlipidemia - Continue Crestor #CAD -no acute issues - cont asa, metoprolol, crestor, lisinopril #Right knee OA - xrays show OA - no current pain, diclofenac gel PRN DVT proph: low risk, ambulating frequently in the hallways all day long Dispo: remains medically stable for discharge pending placement to memory care facility, appreciate SW assistance Admission and Anticipated Discharge Date Admission Date: April 06, 2025 Subjective "I am fine. No problems." Review of Systems Constitutional: Negative for antecedent/coincident fevers, chills, diaphoresis, cough, wheeze, sore throat, hemoptysis, chest pains, palpitations, pleurisy, nausea, vomiting, diarrhea, abdominal pain, pelvic pain, hematemesis, hematochezia, melena, hematuria, dysuria, frequency, urgency, headaches, dizziness, lightheadedness, visual changes, hearing changes, weakness, falls, syncope, trauma, travel history, sick contacts, or food/drug ingestions novel or new. All other review of systems are reported as negative by the patient on 04/27/2025. Physical Exam Constitutional: General: Comfortable, cooperative, coherent. Wide awake and alert. Not confused, lethargic, or obtunded. Patient speaks in complete, fluent, and articulate sentences without pause, interruption, cough, or wheeze. HEENT: Normocephalic, atraumatic. Extra-ocular muscles intact. Pupils equally round and reactive to light. No nystagmus, gaze paresis, anisocoria, miosis, mydriasis, hyphema, chemosis, scleral injection, conjunctivitis, or pterygium. No otorrhea or rhinorrhea. No pharyngeal discharge or exudate. Neck: Supple, no stridor or bruit. Jugular venous pressure is estimated to be 3 cm above the sternal angle of Rc, which is, by definition, 5 cm above the level of the right atrium. Hence, jugular venous pressure of 8 cm is not elevated on discharge date 04/27/2025. Lymphatics: No anterior/posterior cervical, infraclavicular, supraclavicular, axillary, epitrochlear, or inguinal adenopathy. Chest: Symmetric rise and fall with respirations. Non-tender to palpation. Lungs: Clear to auscultation and percussion. No audible expiratory wheeze, egophony, pectoriloquy, increase in tactile fremitus, or flatness/dullness to percussion at the bases. Heart: Regular rate and rhythm. S1 and S2 noted. No S3 or S4 summation gallop. No tripartite friction rub. Grade II/ early systolic murmur at left lower sternal border without radiation to the carotids, axilla, or back, and which remains invariant in regards to the respiratory cycle. Abdomen: Soft, non-tender, non-distended. No rebound, guarding, Mendez's sign, or organomegaly. Bowel sounds auscultated in all 4 quadrants. Extremities: No clubbing, cyanosis, or edema. 2+ pedal pulses bilaterally. Skin: No decubitus ulcer, exanthem, or enanthem. Urology: No cardoza catheter. No purewick. No urethral discharge. Neurology: Alert and oriented in regards to person, place, time, and situation. DTR+. 5/5 motor strength in all 4 extremities, both proximally and distally. Psychiatry: No flat affect. No monotone voice. Smiles appropriately. 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 G30.0; F02.A18 Dementia type: Alzheimer's Alzheimer's disease onset: early onset Dementia severity: mild Dementia behavioral or psychological symptom: with other behavioral disturbance CAD (coronary artery disease) I25.10 Hypertension I10 Tobacco abuse Z72.0 Major depression F32.9 Insomnia disorder G47.00 Anxiety F41.9 (2) Dementia Dementia type: Alzheimer's Alzheimer's disease onset: early onset Dementia severity: mild Dementia behavioral or psychological symptom: with other behavioral disturbance Qualified Code(s): G30.0 - Alzheimer's disease with early onset; F02.A18 - Dementia in other diseases classified elsewhere, mild, with other behavioral disturbance
--- NOTE | 2025-04-28 15:27 | Hospitalist Progress Note ---
Date of Service April 28, 2025 Assessment & Plan (1) Behavior safety risk: Plan: Observe. (2) Dementia: Plan: Continue supportive care with gentle re-direction, frequent re-assurance, aripiprazole 5mg PO bid, donepezil 10mg PO daily, memantine 10mg PO qam. (3) CAD (coronary artery disease): Plan: Continue secondary prophylaxis against CAD utilizing ASA 81mg PO daily and rosuvastatin 20mg PO daily. (4) Hypertension: Plan: Continue home-scheduled amlodipine 10mg PO daily, clonidine 0.1mg transdermal patch q7d, lisinopril 5mg PO daily, metoprolol succinate 50mg PO daily. (5) Tobacco abuse: Plan: Smoking cessation counselling 16 minutes given. Patient agrees to quit smoking tobacco while in [facility]. Patient accepts offer of nicotine replacement utilizing nicotine patch 14mg transdermal daily. (6) Major depression: Plan: Mild. No suicidal ideation. Asymptomatic on sertraline 150mg PO qam. (7) Insomnia disorder: Plan: Asymptomatic on trazodone 50mg PO qhs. (8) Anxiety: Plan: Asymptomatic on lorazepam 0.5mg PO tid prn anxiety. Plan 64yo male with early onset dementia who presented with increase in behavioral disturbance. Patient's ex- was worried about his safety as well as hers. Patient was admitted to [facility] on 04/06/2025 for long- term placement at a memory care facility. #Behavior safety risk | Dementia - - behavior improved/stable; pleasant confusion only and not receiving any as needed antipsychotics, only an occasional as needed Ativan - positive EtOH level on admission - checked B1 level normal, thiamine to 100mg PO daily - checked B12 level - 284; supplement vit B12 1000mcg daily x 4-6 months - TSH 1.9 this admission - MRI brain early 2024 - chronic microvascular changes, but no hydrocephalus, ICH, or stroke - [address] John Benedict - concern for cognitive impairment even at that time, possibly related to long-standing ADD & mood d/o - appreciate Psych consult --adderall discontinued, started Abilify, ativan, trazodone, clonidine -increased Abilify to 5mg BID on 04/25 and can titrate up to max 15mg total daily dose if needed -cont ativan 0.5mg TID prn for anxiety-seems to be getting this at least once to twice per day -cont Trazodone HS -cont Zoloft 150mg qam -cont Clonidine patch - Would only use Zyprexa IM dose if severe agitation - remains on aricept and Namenda for dementia #Skin lesions Bilateral forearms, recommend dermatology follow up Scratching chin causing open lesion - monitor-no infection #Hypertension - BPs controlled -Continue Amlodipine, Lisinopril, Metoprolol; now also on clonidine patch #Hyperlipidemia - Continue Crestor #CAD -no acute issues - cont asa, metoprolol, crestor, lisinopril #Right knee OA - xrays show OA - no current pain, diclofenac gel PRN DVT proph: low risk, ambulating frequently in the hallways all day long Dispo: remains medically stable for discharge pending placement to [facility] care facility, appreciate SW assistance Admission and Anticipated Discharge Date Admission Date: April 06, 2025 Subjective "I feel great. No complaints." Review of Systems Constitutional: Negative for antecedent/coincident fevers, chills, diaphoresis, cough, wheeze, sore throat, hemoptysis, shortness of breath, dyspnea on exertion, chest pains, palpitations, pleurisy, nausea, vomiting, diarrhea, abdominal pain, pelvic pain, hematemesis, hematochezia, melena, hematuria, dysuria, frequency, urgency, flank pain, headaches, dizziness, lightheadedness, visual changes, hearing changes, weakness, falls, syncope, trauma, travel history, sick contacts, or food/drug ingestions novel or new. All other review of systems are reported as negative by the patient on 04/28/2025. Physical Exam Constitutional: General: Comfortable, cooperative, coherent. Wide awake and alert. Not confused, lethargic, or obtunded. Patient speaks in complete, fluent, and articulate sentences without pause, interruption, cough, or wheeze. HEENT: Normocephalic, atraumatic. Extra-ocular muscles intact. Pupils equally round and reactive to light. No nystagmus, gaze paresis, anisocoria, miosis, mydriasis, hyphema, chemosis, scleral injection, conjunctivitis, or pterygium. No otorrhea or rhinorrhea. No pharyngeal discharge or exudate. Neck: Supple, no stridor or bruit. Jugular venous pressure is estimated to be 3 cm above the sternal angle of Rc, which is, by definition, 5 cm above the level of the right atrium. Hence, jugular venous pressure of 8 cm is not elevated on 04/28/2025. Lymphatics: No anterior/posterior cervical, infraclavicular, supraclavicular, axillary, epitrochlear, or inguinal adenopathy. Chest: Symmetric rise and fall with respirations. Non-tender to palpation. Lungs: Clear to auscultation and percussion. No audible expiratory wheeze, egophony, pectoriloquy, increase in tactile fremitus, or flatness/dullness to percussion at the bases. Heart: Regular rate and rhythm. S1 and S2 noted. No S3 or S4 summation gallop. No tripartite friction rub. Grade II/ early systolic murmur at left lower sternal border without radiation to the carotids, axilla, or back, and which remains invariant in regards to the respiratory cycle. Abdomen: Soft, non-tender, non-distended. No rebound, guarding, Mendez's sign, or organomegaly. Bowel sounds auscultated in all 4 quadrants. Extremities: No clubbing, cyanosis, or edema. 2+ pedal pulses bilaterally. Skin: No decubitus ulcer, exanthem, or enanthem. Urology: No cardoza catheter. No purewick. No urethral discharge. Neurology: Alert and oriented in regards to person, place, time, and situation. DTR+. 5/5 motor strength in all 4 extremities, both proximally and distally. Psychiatry: No flat affect. No monotone voice. Smiles appropriately. Results & Data Results & Data Vital Signs (Past 12 Hours) Vital Signs Temp Pulse Resp BP Pulse Ox O2 Del Method 04/28/25 06:54 36.5 C 67 20 130/74 99 Room Air Laboratory Results None. 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 G30.0; F02.A18 Dementia type: Alzheimer's Alzheimer's disease onset: early onset Dementia severity: mild Dementia behavioral or psychological symptom: with other behavioral disturbance CAD (coronary artery disease) I25.10 Hypertension I10 Tobacco abuse Z72.0 Major depression F32.9 Insomnia disorder G47.00 Anxiety F41.9 (2) Dementia Dementia type: Alzheimer's Alzheimer's disease onset: early onset Dementia severity: mild Dementia behavioral or psychological symptom: with other behavioral disturbance Qualified Code(s): G30.0 - Alzheimer's disease with early onset; F02.A18 - Dementia in other diseases classified elsewhere, mild, with other behavioral disturbance
[2025-04-29] MEDS: DICLOFENAC SOD 1% GEL 100 GM TUBE EXT PRN (20:10)
--- NOTE | 2025-04-29 20:43 | Hospitalist Progress Note ---
Date of Service April 29, 2025 Assessment & Plan (1) Behavior safety risk: Plan: Observe. (2) Dementia: Plan: Continue supportive care with gentle re-direction, frequent re-assurance, aripiprazole 5mg PO bid, donepezil 10mg PO daily, memantine 10mg PO qam. (3) CAD (coronary artery disease): Plan: Continue secondary prophylaxis against CAD utilizing ASA 81mg PO daily and rosuvastatin 20mg PO daily. (4) Hypertension: Plan: Continue home-scheduled amlodipine 10mg PO daily, clonidine 0.1mg transdermal patch q7d, lisinopril 5mg PO daily, metoprolol succinate 50mg PO daily. (5) Tobacco abuse: Plan: Smoking cessation counselling 16 minutes given. Patient agrees to quit smoking tobacco while in [facility]. Patient accepts offer of nicotine replacement utilizing nicotine patch 14mg transdermal daily. (6) Major depression: Plan: Mild. No suicidal ideation. Asymptomatic on sertraline 150mg PO qam. (7) Insomnia disorder: Plan: Asymptomatic on trazodone 50mg PO qhs. (8) Anxiety: Plan: Asymptomatic on lorazepam 0.5mg PO tid prn anxiety. Plan 64yo male with early onset dementia who presented with increase in behavioral disturbance. Patient's ex- was worried about his safety as well as hers. Patient was admitted to [facility] on 04/06/2025 for long- term placement at a memory care facility. #Behavior safety risk | Dementia - - behavior improved/stable; pleasant confusion only and not receiving any as needed antipsychotics, only an occasional as needed Ativan - positive EtOH level on admission - checked B1 level normal, thiamine to 100mg PO daily - checked B12 level - 284; supplement vit B12 1000mcg daily x 4-6 months - TSH 1.9 this admission - MRI brain early 2024 - chronic microvascular changes, but no hydrocephalus, ICH, or stroke - [address] John Benedict - concern for cognitive impairment even at that time, possibly related to long-standing ADD & mood d/o - appreciate Psych consult --adderall discontinued, started Abilify, ativan, trazodone, clonidine -increased Abilify to 5mg BID on 04/25 and can titrate up to max 15mg total daily dose if needed -cont ativan 0.5mg TID prn for anxiety-seems to be getting this at least once to twice per day -cont Trazodone HS -cont Zoloft 150mg qam -cont Clonidine patch - Would only use Zyprexa IM dose if severe agitation - remains on aricept and Namenda for dementia #Skin lesions Bilateral forearms, recommend dermatology follow up Scratching chin causing open lesion - monitor-no infection #Hypertension - BPs controlled -Continue Amlodipine, Lisinopril, Metoprolol; now also on clonidine patch #Hyperlipidemia - Continue Crestor #CAD -no acute issues - cont asa, metoprolol, crestor, lisinopril #Right knee OA - xrays show OA - no current pain, diclofenac gel PRN DVT proph: low risk, ambulating frequently in the hallways all day long Dispo: remains medically stable for discharge pending placement to [facility] care facility, appreciate SW assistance Admission and Anticipated Discharge Date Admission Date: April 06, 2025 Subjective "I feel great. No complaints." Review of Systems Constitutional: Negative for antecedent/coincident fevers, chills, diaphoresis, cough, wheeze, sore throat, hemoptysis, shortness of breath, dyspnea on exertion, chest pains, palpitations, pleurisy, nausea, vomiting, diarrhea, abdominal pain, pelvic pain, hematemesis, hematochezia, melena, hematuria, dysuria, frequency, urgency, flank pain, headaches, dizziness, lightheadedness, visual changes, hearing changes, weakness, falls, syncope, trauma, travel history, sick contacts, or food/drug ingestions novel or new. All other review of systems are reported as negative by the patient on 04/29/2025. Physical Exam Constitutional: General: Comfortable, cooperative, coherent. Wide awake and alert. Not confused, lethargic, or obtunded. Patient speaks in complete, fluent, and articulate sentences without pause, interruption, cough, or wheeze. HEENT: Normocephalic, atraumatic. Extra-ocular muscles intact. Pupils equally round and reactive to light. No nystagmus, gaze paresis, anisocoria, miosis, mydriasis, hyphema, chemosis, scleral injection, conjunctivitis, or pterygium. No otorrhea or rhinorrhea. No pharyngeal discharge or exudate. Neck: Supple, no stridor or bruit. Jugular venous pressure is estimated to be 3 cm above the sternal angle of Rc, which is, by definition, 5 cm above the level of the right atrium. Hence, jugular venous pressure of 8 cm is not elevated on 04/29/2025. Lymphatics: No anterior/posterior cervical, infraclavicular, supraclavicular, axillary, epitrochlear, or inguinal adenopathy. Chest: Symmetric rise and fall with respirations. Non-tender to palpation. Lungs: Clear to auscultation and percussion. No audible expiratory wheeze, egophony, pectoriloquy, increase in tactile fremitus, or flatness/dullness to percussion at the bases. Heart: Regular rate and rhythm. S1 and S2 noted. No S3 or S4 summation gallop. No tripartite friction rub. Grade II/ early systolic murmur at left lower sternal border without radiation to the carotids, axilla, or back, and which remains invariant in regards to the respiratory cycle. Abdomen: Soft, non-tender, non-distended. No rebound, guarding, Mendez's sign, or organomegaly. Bowel sounds auscultated in all 4 quadrants. Extremities: No clubbing, cyanosis, or edema. 2+ pedal pulses bilaterally. Skin: No decubitus ulcer, exanthem, or enanthem. Urology: No cardoza catheter. No purewick. No urethral discharge. Neurology: Alert and oriented in regards to person, place, time, and situation. DTR+. 5/5 motor strength in all 4 extremities, both proximally and distally. Psychiatry: No flat affect. No monotone voice. Smiles appropriately. Results & Data Results & Data Laboratory Results None. Diagnostic Findings None. 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 G30.0; F02.A18 Dementia type: Alzheimer's Alzheimer's disease onset: early onset Dementia severity: mild Dementia behavioral or psychological symptom: with other behavioral disturbance CAD (coronary artery disease) I25.10 Hypertension I10 Tobacco abuse Z72.0 Major depression F32.9 Insomnia disorder G47.00 Anxiety F41.9 (2) Dementia Dementia type: Alzheimer's Alzheimer's disease onset: early onset Dementia severity: mild Dementia behavioral or psychological symptom: with other behavioral disturbance Qualified Code(s): G30.0 - Alzheimer's disease with early onset; F02.A18 - Dementia in other diseases classified elsewhere, mild, with other behavioral disturbance
--- NOTE | 2025-04-30 09:37 | Hospitalist Progress Note ---
Date of Service April 30, 2025 Assessment & Plan (1) Behavior safety risk: Plan: 1:1 Observation. (2) Dementia: Plan: Continue supportive care with gentle re-direction, frequent re-assurance, alexis piprazole 5mg PO bid, donepezil 10mg PO daily, memantine 10mg PO qam. (3) CAD (coronary artery disease): Plan: Continue secondary prophylaxis against CAD utilizing ASA 81mg PO daily and rosuvastatin 20mg PO daily. (4) Hypertension: Plan: Continue home-scheduled amlodipine 10mg PO daily, clonidine 0.1mg transdermal patch q7d, lisinopril 5mg PO daily, metoprolol succinate 50mg PO daily. (5) Tobacco abuse: Plan: Nicotine replacement utilizing nicotine patch 14mg transdermal daily. (6) Major depression: Plan: Mild. No suicidal ideation. Asymptomatic on sertraline 150mg PO qam. (7) Insomnia disorder: Plan: Asymptomatic on trazodone 50mg PO qhs. (8) Anxiety: Plan: Asymptomatic on lorazepam 0.5mg PO tid prn anxiety. Plan 64yo male with early onset dementia who presented with increase in behavioral disturbance. Patient's ex- was worried about his safety as well as hers. Patient was admitted to [facility] on 04/06/2025 for long- term placement at a memory care facility. Dispo: remains medically stable for discharge pending placement to memory care facility, appreciate SW assistance Admission and Anticipated Discharge Date Admission Date: April 06, 2025 Subjective No events overnight. Pt resting in bed. Review of Systems Review of Systems: CONST: Negative for fever, body aches and chills. HENT: Negative for neck pain/stiffness, headache, congestion, sore throat, swelling. EYES: Negative for discharge/pain or vision changes. RESP: Negative for cough/hemoptysis and shortness of breath. CV: Negative chest pain, difficulty breathing, palpitations. ABD: Negative pain, nausea, vomiting. : Negative increase frequency, dysuria, blood in urine or stool. MUSC: Negative for muscle aches, edema. SKIN: Negative rash, lesions/sores. NEURO: Negative headache, dizziness, weakness. Physical Exam Physical Exam: GENERAL APPEARANCE NAD, activity normal for age, well developed/ well nourished, no cyanosis, pallor, or diaphoresis. EYES lids/conjunctiva normal. EARS/NOSE/THROAT Mucous membranes moist, nares normal, lips/teeth normal uvula midline without oral pharyngeal erythema, exudate or swelling TMs normal bilaterally. No lymphangitis/lymphedema. HEAD/NECK normocephalic atraumatic, no facial trauma, neck is supple. RESPIRATORY respiratory effort normal, speaks in full sentences, no tripod position, no accessory muscle use. Lungs clear to auscultation without rhonchi, wheezes, rales CARDIAC Regular rate and rhythm, no edema. ABDOMINAL Soft, ND/NT. No evidence of fluid wave. No pulsatile masses on exam, rebound tenderness, Mendez sign or pain over Mcburney's point. MUSCLES/EXTREMITIES No abnormal range of motion, no swelling. SKIN Warm, pink and dry. No rashes, dermatoses, petechiae or lesions. NEUROLOGICAL Speech is clear and appropriate. Normal level of consciousness. Gait and coordination are normal. 5/5 strength in all extremities. PSYCH Normal mood and affect. 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 G30.0; F02.A18 Dementia type: Alzheimer's Alzheimer's disease onset: early onset Dementia severity: mild Dementia behavioral or psychological symptom: with other behavioral disturbance CAD (coronary artery disease) I25.10 Hypertension I10 Tobacco abuse Z72.0 Major depression F32.9 Insomnia disorder G47.00 Anxiety F41.9 (2) Dementia Dementia type: Alzheimer's Alzheimer's disease onset: early onset Dementia severity: mild Dementia behavioral or psychological symptom: with other behavioral disturbance Qualified Code(s): G30.0 - Alzheimer's disease with early onset; F02.A18 - Dementia in other diseases classified elsewhere, mild, with other behavioral disturbance
--- NOTE | 2025-05-01 09:36 | Hospitalist Progress Note ---
Date of Service May 01, 2025 Assessment & Plan (1) Behavior safety risk: Plan: 1:1 Observation. (2) Dementia: Plan: Continue supportive care with gentle re-direction, frequent re-assurance, alexis piprazole 5mg PO bid, donepezil 10mg PO daily, memantine 10mg PO qam. (3) CAD (coronary artery disease): Plan: Continue secondary prophylaxis against CAD utilizing ASA 81mg PO daily and rosuvastatin 20mg PO daily. (4) Hypertension: Plan: Continue home-scheduled amlodipine 10mg PO daily, clonidine 0.1mg transdermal patch q7d, lisinopril 5mg PO daily, metoprolol succinate 50mg PO daily. (5) Tobacco abuse: Plan: Nicotine replacement utilizing nicotine patch 14mg transdermal daily. (6) Major depression: Plan: Mild. No suicidal ideation. Asymptomatic on sertraline 150mg PO qam. (7) Insomnia disorder: Plan: Asymptomatic on trazodone 50mg PO qhs. (8) Anxiety: Plan: Asymptomatic on lorazepam 0.5mg PO tid prn anxiety. Plan 64yo male with early onset dementia who presented with increase in behavioral disturbance. Patient's ex- was worried about his safety as well as hers. Patient was admitted to [facility] on 04/06/2025 for long- term placement at a memory care facility. Dispo: remains medically stable for discharge pending placement to memory care facility, appreciate SW assistance Admission and Anticipated Discharge Date Admission Date: April 06, 2025 Subjective No events overnight. Pt walking down marti. Review of Systems Review of Systems: CONST: Negative for fever, body aches and chills. HENT: Negative for neck pain/stiffness, headache, congestion, sore throat, swelling. EYES: Negative for discharge/pain or vision changes. RESP: Negative for cough/hemoptysis and shortness of breath. CV: Negative chest pain, difficulty breathing, palpitations. ABD: Negative pain, nausea, vomiting. : Negative increase frequency, dysuria, blood in urine or stool. MUSC: Negative for muscle aches, edema. SKIN: Negative rash, lesions/sores. NEURO: Negative headache, dizziness, weakness. Constitutional: Negative for antecedent/coincident fevers, chills, diaphoresis, cough, wheeze, sore throat, hemoptysis, shortness of breath, dyspnea on exertion, chest pains, palpitations, pleurisy, nausea, vomiting, diarrhea, abdominal pain, pelvic pain, hematemesis, hematochezia, melena, hematuria, dysuria, frequency, urgency, flank pain, headaches, dizziness, lightheadedness, visual changes, hearing changes, weakness, falls, syncope, trauma, travel history, sick contacts, or food/drug ingestions novel or new. All other review of systems are reported as negative by the patient on . Physical Exam Physical Exam: GENERAL APPEARANCE NAD, activity normal for age, well developed/ well nourished, no cyanosis, pallor, or diaphoresis. EYES lids/conjunctiva normal. EARS/NOSE/THROAT Mucous membranes moist, nares normal, lips/teeth normal uvula midline without oral pharyngeal erythema, exudate or swelling TMs normal bilaterally. No lymphangitis/lymphedema. HEAD/NECK normocephalic atraumatic, no facial trauma, neck is supple. RESPIRATORY respiratory effort normal, speaks in full sentences, no tripod position, no accessory muscle use. Lungs clear to auscultation without rhonchi, wheezes, rales CARDIAC Regular rate and rhythm, no edema. ABDOMINAL Soft, ND/NT. No evidence of fluid wave. No pulsatile masses on exam, rebound tenderness, Mendez sign or pain over Mcburney's point. MUSCLES/EXTREMITIES No abnormal range of motion, no swelling. SKIN Warm, pink and dry. No rashes, dermatoses, petechiae or lesions. NEUROLOGICAL Speech is clear and appropriate. Normal level of consciousness. Gait and coordination are normal. 5/5 strength in all extremities. PSYCH Normal mood and affect. 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 G30.0; F02.A18 Dementia type: Alzheimer's Alzheimer's disease onset: early onset Dementia severity: mild Dementia behavioral or psychological symptom: with other behavioral disturbance CAD (coronary artery disease) I25.10 Hypertension I10 Tobacco abuse Z72.0 Major depression F32.9 Insomnia disorder G47.00 Anxiety F41.9 (2) Dementia Dementia type: Alzheimer's Alzheimer's disease onset: early onset Dementia severity: mild Dementia behavioral or psychological symptom: with other behavioral disturbance Qualified Code(s): G30.0 - Alzheimer's disease with early onset; F02.A18 - Dementia in other diseases classified elsewhere, mild, with other behavioral disturbance
--- NOTE | 2025-05-02 10:35 | Hospitalist Progress Note ---
Date of Service May 02, 2025 Assessment & Plan (1) Behavior safety risk: Plan: 1:1 Observation. (2) Dementia: Plan: Continue supportive care with gentle re-direction, frequent re-assurance, alexis piprazole 5mg PO bid, donepezil 10mg PO daily, memantine 10mg PO qam. (3) CAD (coronary artery disease): Plan: Continue secondary prophylaxis against CAD utilizing ASA 81mg PO daily and rosuvastatin 20mg PO daily. (4) Hypertension: Plan: Continue home-scheduled amlodipine 10mg PO daily, clonidine 0.1mg transdermal patch q7d, lisinopril 5mg PO daily, metoprolol succinate 50mg PO daily. (5) Tobacco abuse: Plan: Nicotine replacement utilizing nicotine patch 14mg transdermal daily. (6) Major depression: Plan: Mild. No suicidal ideation. Asymptomatic on sertraline 150mg PO qam. (7) Insomnia disorder: Plan: Asymptomatic on trazodone 50mg PO qhs. (8) Anxiety: Plan: Asymptomatic on lorazepam 0.5mg PO tid prn anxiety. Plan 64yo male with early onset dementia who presented with increase in behavioral disturbance. Patient's ex- was worried about his safety as well as hers. Patient was admitted to [facility] on 04/06/2025 for long- term placement at a memory care facility. Dispo: remains medically stable for discharge pending placement to memory care facility, appreciate SW assistance Admission and Anticipated Discharge Date Admission Date: April 06, 2025 Subjective No events overnight. Pt walking down marti. Review of Systems Review of Systems: CONST: Negative for fever, body aches and chills. HENT: Negative for neck pain/stiffness, headache, congestion, sore throat, swelling. EYES: Negative for discharge/pain or vision changes. RESP: Negative for cough/hemoptysis and shortness of breath. CV: Negative chest pain, difficulty breathing, palpitations. ABD: Negative pain, nausea, vomiting. : Negative increase frequency, dysuria, blood in urine or stool. MUSC: Negative for muscle aches, edema. SKIN: Negative rash, lesions/sores. NEURO: Negative headache, dizziness, weakness. Constitutional: Negative for antecedent/coincident fevers, chills, diaphoresis, cough, wheeze, sore throat, hemoptysis, shortness of breath, dyspnea on exertion, chest pains, palpitations, pleurisy, nausea, vomiting, diarrhea, abdominal pain, pelvic pain, hematemesis, hematochezia, melena, hematuria, dysuria, frequency, urgency, flank pain, headaches, dizziness, lightheadedness, visual changes, hearing changes, weakness, falls, syncope, trauma, travel history, sick contacts, or food/drug ingestions novel or new. All other review of systems are reported as negative by the patient on . Physical Exam Physical Exam: GENERAL APPEARANCE NAD, activity normal for age, well developed/ well nourished, no cyanosis, pallor, or diaphoresis. EYES lids/conjunctiva normal. EARS/NOSE/THROAT Mucous membranes moist, nares normal, lips/teeth normal uvula midline without oral pharyngeal erythema, exudate or swelling TMs normal bilaterally. No lymphangitis/lymphedema. HEAD/NECK normocephalic atraumatic, no facial trauma, neck is supple. RESPIRATORY respiratory effort normal, speaks in full sentences, no tripod position, no accessory muscle use. Lungs clear to auscultation without rhonchi, wheezes, rales CARDIAC Regular rate and rhythm, no edema. ABDOMINAL Soft, ND/NT. No evidence of fluid wave. No pulsatile masses on exam, rebound tenderness, Mendez sign or pain over Mcburney's point. MUSCLES/EXTREMITIES No abnormal range of motion, no swelling. SKIN Warm, pink and dry. No rashes, dermatoses, petechiae or lesions. NEUROLOGICAL Speech is clear and appropriate. Normal level of consciousness. Gait and coordination are normal. 5/5 strength in all extremities. PSYCH Normal mood and affect. 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 G30.0; F02.A18 Dementia type: Alzheimer's Alzheimer's disease onset: early onset Dementia severity: mild Dementia behavioral or psychological symptom: with other behavioral dist urbance CAD (coronary artery disease) I25.10 Hypertension I10 Tobacco abuse Z72.0 Major depression F32.9 Insomnia disorder G47.00 Anxiety F41.9 (2) Dementia Dementia type: Alzheimer's Alzheimer's disease onset: early onset Dementia severity: mild Dementia behavioral or psychological symptom: with other behavioral disturbance Qualified Code(s): G30.0 - Alzheimer's disease with early onset; F02.A18 - Dementia in other diseases classified elsewhere, mild, with other behavioral disturbance
--- NOTE | 2025-05-03 09:38 | Hospitalist Progress Note ---
Date of Service May 03, 2025 Assessment & Plan (1) Behavior safety risk: Plan: 1:1 Observation. (2) Dementia: Plan: Continue supportive care with gentle re-direction, frequent re-assurance, alexis piprazole 5mg PO bid, donepezil 10mg PO daily, memantine 10mg PO qam. (3) CAD (coronary artery disease): Plan: Continue secondary prophylaxis against CAD utilizing ASA 81mg PO daily and rosuvastatin 20mg PO daily. (4) Hypertension: Plan: Continue home-scheduled amlodipine 10mg PO daily, clonidine 0.1mg transdermal patch q7d, lisinopril 5mg PO daily, metoprolol succinate 50mg PO daily. (5) Tobacco abuse: Plan: Nicotine replacement utilizing nicotine patch 14mg transdermal daily. (6) Major depression: Plan: Mild. No suicidal ideation. Asymptomatic on sertraline 150mg PO qam. (7) Insomnia disorder: Plan: Asymptomatic on trazodone 50mg PO qhs. (8) Anxiety: Plan: Asymptomatic on lorazepam 0.5mg PO tid prn anxiety. Plan 64yo male with early onset dementia who presented with increase in behavioral disturbance. Patient's ex- was worried about his safety as well as hers. Patient was admitted to [facility] on 04/06/2025 for long- term placement at a memory care facility. Dispo: remains medically stable for discharge pending placement to memory care facility, appreciate SW assistance Admission and Anticipated Discharge Date Admission Date: April 06, 2025 Subjective No events overnight. Review of Systems Review of Systems: CONST: Negative for fever, body aches and chills. HENT: Negative for neck pain/stiffness, headache, congestion, sore throat, swelling. EYES: Negative for discharge/pain or vision changes. RESP: Negative for cough/hemoptysis and shortness of breath. CV: Negative chest pain, difficulty breathing, palpitations. ABD: Negative pain, nausea, vomiting. : Negative increase frequency, dysuria, blood in urine or stool. MUSC: Negative for muscle aches, edema. SKIN: Negative rash, lesions/sores. NEURO: Negative headache, dizziness, weakness. Physical Exam 2 Physical Exam: GENERAL APPEARANCE NAD, activity normal for age, well developed/ well nourished, no cyanosis, pallor, or diaphoresis. EYES lids/conjunctiva normal. EARS/NOSE/THROAT Mucous membranes moist, nares normal, lips/teeth normal uvula midline without oral pharyngeal erythema, exudate or swelling TMs normal bilaterally. No lymphangitis/lymphedema. HEAD/NECK normocephalic atraumatic, no facial trauma, neck is supple. RESPIRATORY respiratory effort normal, speaks in full sentences, no tripod position, no accessory muscle use. Lungs clear to auscultation without rhonchi, wheezes, rales CARDIAC Regular rate and rhythm, no edema. ABDOMINAL Soft, ND/NT. No evidence of fluid wave. No pulsatile masses on exam, rebound tenderness, Mendez sign or pain over Mcburney's point. MUSCLES/EXTREMITIES No abnormal range of motion, no swelling. SKIN Warm, pink and dry. No rashes, dermatoses, petechiae or lesions. NEUROLOGICAL Speech is clear and appropriate. Normal level of consciousness. Gait and coordination are normal. 5/5 strength in all extremities. PSYCH Normal mood and affect. 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 G30.0; F02.A18 Dementia type: Alzheimer's Alzheimer's disease onset: early onset Dementia severity: mild Dementia behavioral or psychological symptom: with other behavioral disturbance CAD (coronary artery disease) I25.10 Hypertension I10 Tobacco abuse Z72.0 Major depression F32.9 Insomnia disorder G47.00 Anxiety F41.9 (2) Dementia Dementia type: Alzheimer's Alzheimer's disease onset: early onset Dementia severity: mild Dementia behavioral or psychological symptom: with other behavioral disturbance Qualified Code(s): G30.0 - Alzheimer's disease with early onset; F02.A18 - Dementia in other diseases classified elsewhere, mild, with other behavioral disturbance
--- NOTE | 2025-05-04 09:41 | Hospitalist Progress Note ---
Date of Service May 04, 2025 Assessment & Plan (1) Behavior safety risk: Plan: 1:1 Observation. (2) Dementia: Plan: Continue supportive care with gentle re-direction, frequent re-assurance, alexis piprazole 5mg PO bid, donepezil 10mg PO daily, memantine 10mg PO qam. (3) CAD (coronary artery disease): Plan: Continue secondary prophylaxis against CAD utilizing ASA 81mg PO daily and rosuvastatin 20mg PO daily. (4) Hypertension: Plan: Continue home-scheduled amlodipine 10mg PO daily, clonidine 0.1mg transdermal patch q7d, lisinopril 5mg PO daily, metoprolol succinate 50mg PO daily. (5) Tobacco abuse: Plan: Nicotine replacement utilizing nicotine patch 14mg transdermal daily. (6) Major depression: Plan: Mild. No suicidal ideation. Asymptomatic on sertraline 150mg PO qam. (7) Insomnia disorder: Plan: Asymptomatic on trazodone 50mg PO qhs. (8) Anxiety: Plan: Asymptomatic on lorazepam 0.5mg PO tid prn anxiety. Plan 64yo male with early onset dementia who presented with increase in behavioral disturbance. Patient's ex- was worried about his safety as well as hers. Patient was admitted to [facility] on 04/06/2025 for long- term placement at a memory care facility. Dispo: remains medically stable for discharge pending placement to memory care facility, appreciate SW assistance Admission and Anticipated Discharge Date Admission Date: April 06, 2025 Subjective No events overnight. Review of Systems Review of Systems: CONST: Negative for fever, body aches and chills. HENT: Negative for neck pain/stiffness, headache, congestion, sore throat, swelling. EYES: Negative for discharge/pain or vision changes. RESP: Negative for cough/hemoptysis and shortness of breath. CV: Negative chest pain, difficulty breathing, palpitations. ABD: Negative pain, nausea, vomiting. : Negative increase frequency, dysuria, blood in urine or stool. MUSC: Negative for muscle aches, edema. SKIN: Negative rash, lesions/sores. NEURO: Negative headache, dizziness, weakness. Physical Exam 2 Physical Exam: GENERAL APPEARANCE NAD, activity normal for age, well developed/ well nourished, no cyanosis, pallor, or diaphoresis. EYES lids/conjunctiva normal. EARS/NOSE/THROAT Mucous membranes moist, nares normal, lips/teeth normal uvula midline without oral pharyngeal erythema, exudate or swelling TMs normal bilaterally. No lymphangitis/lymphedema. HEAD/NECK normocephalic atraumatic, no facial trauma, neck is supple. RESPIRATORY respiratory effort normal, speaks in full sentences, no tripod position, no accessory muscle use. Lungs clear to auscultation without rhonchi, wheezes, rales CARDIAC Regular rate and rhythm, no edema. ABDOMINAL Soft, ND/NT. No evidence of fluid wave. No pulsatile masses on exam, rebound tenderness, Mendez sign or pain over Mcburney's point. MUSCLES/EXTREMITIES No abnormal range of motion, no swelling. SKIN Warm, pink and dry. No rashes, dermatoses, petechiae or lesions. NEUROLOGICAL Speech is clear and appropriate. Normal level of consciousness. Gait and coordination are normal. 5/5 strength in all extremities. PSYCH Normal mood and affect. 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 G30.0; F02.A18 Dementia type: Alzheimer's Alzheimer's disease onset: early onset Dementia severity: mild Dementia behavioral or psychological symptom: with other behavioral disturbance CAD (coronary artery disease) I25.10 Hypertension I10 Tobacco abuse Z72.0 Major depression F32.9 Insomnia disorder G47.00 Anxiety F41.9 (2) Dementia Dementia type: Alzheimer's Alzheimer's disease onset: early onset Dementia severity: mild Dementia behavioral or psychological symptom: with other behavioral disturbance Qualified Code(s): G30.0 - Alzheimer's disease with early onset; F02.A18 - Dementia in other diseases classified elsewhere, mild, with other behavioral disturbance
--- NOTE | 2025-05-05 09:48 | Hospitalist Progress Note ---
Date of Service May 05, 2025 Assessment & Plan (1) Behavior safety risk: Plan: 1:1 Observation. (2) Dementia: Plan: Continue supportive care with gentle re-direction, frequent re-assurance, alexis piprazole 5mg PO bid, donepezil 10mg PO daily, memantine 10mg PO qam. (3) CAD (coronary artery disease): Plan: Continue secondary prophylaxis against CAD utilizing ASA 81mg PO daily and rosuvastatin 20mg PO daily. (4) Hypertension: Plan: Continue home-scheduled amlodipine 10mg PO daily, clonidine 0.1mg transdermal patch q7d, lisinopril 5mg PO daily, metoprolol succinate 50mg PO daily. (5) Tobacco abuse: Plan: Nicotine replacement utilizing nicotine patch 14mg transdermal daily. (6) Major depression: Plan: Mild. No suicidal ideation. Asymptomatic on sertraline 150mg PO qam. (7) Insomnia disorder: Plan: Asymptomatic on trazodone 50mg PO qhs. (8) Anxiety: Plan: Asymptomatic on lorazepam 0.5mg PO tid prn anxiety. Plan 64yo male with early onset dementia who presented with increase in behavioral disturbance. Patient's ex- was worried about his safety as well as hers. Patient was admitted to [facility] on 04/06/2025 for long- term placement at a memory care facility. Dispo: remains medically stable for discharge pending placement to memory care facility, appreciate SW assistance Admission and Anticipated Discharge Date Admission Date: April 06, 2025 Subjective No events overnight. Review of Systems Review of Systems: CONST: Negative for fever, body aches and chills. HENT: Negative for neck pain/stiffness, headache, congestion, sore throat, swelling. EYES: Negative for discharge/pain or vision changes. RESP: Negative for cough/hemoptysis and shortness of breath. CV: Negative chest pain, difficulty breathing, palpitations. ABD: Negative pain, nausea, vomiting. : Negative increase frequency, dysuria, blood in urine or stool. MUSC: Negative for muscle aches, edema. SKIN: Negative rash, lesions/sores. NEURO: Negative headache, dizziness, weakness. Constitutional: Negative for antecedent/coincident fevers, chills, diaphoresis, cough, wheeze, sore throat, hemoptysis, shortness of breath, dyspnea on exertion, chest pains, palpitations, pleurisy, nausea, vomiting, diarrhea, abdominal pain, pelvic pain, hematemesis, hematochezia, melena, hematuria, dysuria, frequency, urgency, flank pain, headaches, dizziness, lightheadedness, visual changes, hearing changes, weakness, falls, syncope, trauma, travel history, sick contacts, or food/drug ingestions novel or new. All other review of systems are reported as negative by the patient on 04/29/2025. Physical Exam Physical Exam: GENERAL APPEARANCE NAD, activity normal for age, well developed/ well nourished, no cyanosis, pallor, or diaphoresis. EYES lids/conjunctiva normal. EARS/NOSE/THROAT Mucous membranes moist, nares normal, lips/teeth normal uvula midline without oral pharyngeal erythema, exudate or swelling TMs normal bilaterally. No lymphangitis/lymphedema. HEAD/NECK normocephalic atraumatic, no facial trauma, neck is supple. RESPIRATORY respiratory effort normal, speaks in full sentences, no tripod position, no accessory muscle use. Lungs clear to auscultation without rhonchi, wheezes, rales CARDIAC Regular rate and rhythm, no edema. ABDOMINAL Soft, ND/NT. No evidence of fluid wave. No pulsatile masses on exam, rebound tenderness, Mendez sign or pain over Mcburney's point. MUSCLES/EXTREMITIES No abnormal range of motion, no swelling. SKIN Warm, pink and dry. No rashes, dermatoses, petechiae or lesions. NEUROLOGICAL Speech is clear and appropriate. Normal level of consciousness. Gait and coordination are normal. 5/5 strength in all extremities. PSYCH Normal mood and affect. 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 G30.0; F02.A18 Dementia type: Alzheimer's Alzheimer's disease onset: early onset Dementia severity: mild Dementia behavioral or psychological symptom: with other behavioral disturbance CAD (coronary artery disease) I25.10 Hypertension I10 Tobacco abuse Z72.0 Major depression F32.9 Insomnia disorder G47.00 Anxiety F41.9 (2) Dementia Dementia type: Alzheimer's Alzheimer's disease onset: early onset Dementia severity: mild Dementia behavioral or psychological symptom: with other behavioral disturbance Qualified Code(s): G30.0 - Alzheimer's disease with early onset; F02.A18 - Dementia in other diseases classified elsewhere, mild, with other behavioral disturbance
--- NOTE | 2025-05-06 10:13 | Hospitalist Progress Note ---
Date of Service May 06, 2025 Assessment & Plan (1) Dementia: Plan: Continue supportive care with gentle re-direction, frequent re-assurance, aripiprazole 5mg PO bid, donepezil 10mg PO daily, memantine 10mg PO qam. (2) Behavior safety risk: Plan: 1:1 Observation. (3) CAD (coronary artery disease): Plan: Continue secondary prophylaxis against CAD utilizing ASA 81mg PO daily and rosuvastatin 20mg PO daily. (4) Hypertension: Plan: Continue home-scheduled amlodipine 10mg PO daily, clonidine 0.1mg transdermal patch q7d, lisinopril 5mg PO daily, metoprolol succinate 50mg PO daily. (5) Tobacco abuse: Plan: Nicotine replacement utilizing nicotine patch 14mg transdermal daily. (6) Major depression: Plan: Mild. No suicidal ideation. Asymptomatic on sertraline 150mg PO qam. (7) Insomnia disorder: Plan: Asymptomatic on trazodone 50mg PO qhs. (8) Anxiety: Plan: Asymptomatic on lorazepam 0.5mg PO tid prn anxiety. Plan 64yo male with early onset dementia who presented with increase in behavioral disturbance. Patient's ex- was worried about his safety as well as hers. Patient was admitted to [facility] on 04/06/2025 for long- term placement at a memory care facility. Dispo: remains medically stable for discharge pending placement to memory care facility, appreciate SW assistance Admission and Anticipated Discharge Date Admission Date: April 06, 2025 Subjective No events overnight. Pt seen walking in marti doing well. Review of Systems Review of Systems: CONST: Negative for fever, body aches and chills. HENT: Negative for neck pain/stiffness, headache, congestion, sore throat, swelling. EYES: Negative for discharge/pain or vision changes. RESP: Negative for cough/hemoptysis and shortness of breath. CV: Negative chest pain, difficulty breathing, palpitations. ABD: Negative pain, nausea, vomiting. : Negative increase frequency, dysuria, blood in urine or stool. MUSC: Negative for muscle aches, edema. SKIN: Negative rash, lesions/sores. NEURO: Negative headache, dizziness, weakness. Physical Exam Physical Exam: GENERAL APPEARANCE NAD, activity normal for age, well developed/ well nourished, no cyanosis, pallor, or diaphoresis. EYES lids/conjunctiva normal. EARS/NOSE/THROAT Mucous membranes moist, nares normal, lips/teeth normal uvula midline without oral pharyngeal erythema, exudate or swelling TMs normal bilaterally. No lymphangitis/lymphedema. HEAD/NECK normocephalic atraumatic, no facial trauma, neck is supple. RESPIRATORY respiratory effort normal, speaks in full sentences, no tripod position, no accessory muscle use. Lungs clear to auscultation without rhonchi, wheezes, rales CARDIAC Regular rate and rhythm, no edema. ABDOMINAL Soft, ND/NT. No evidence of fluid wave. No pulsatile masses on exam, rebound tenderness, Mendez sign or pain over Mcburney's point. MUSCLES/EXTREMITIES No abnormal range of motion, no swelling. SKIN Warm, pink and dry. No rashes, dermatoses, petechiae or lesions. NEUROLOGICAL Speech is clear and appropriate. Normal level of consciousness. Gait and coordination are normal. 5/5 strength in all extremities. PSYCH Normal mood and affect. 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 G30.0; F02.A18 Dementia type: Alzheimer's Alzheimer's disease onset: early onset Dementia severity: mild Dementia behavioral or psychological symptom: with other behavioral disturbance Behavior safety risk Z91.89 CAD (coronary artery disease) I25.10 Hypertension I10 Tobacco abuse Z72.0 Major depression F32.9 Insomnia disorder G47.00 Anxiety F41.9 (1) Dementia Dementia type: Alzheimer's Alzheimer's disease onset: early onset Dementia severity: mild Dementia behavioral or psychological symptom: with other behavioral disturbance Qualified Code(s): G30.0 - Alzheimer's disease with early onset; F02.A18 - Dementia in other diseases classified elsewhere, mild, with other behavioral disturbance
[2025-05-07] MEDS: METOPROLOL SUCC 50MG EXT REL TAB PO SCH (07:40)
[2025-05-07] MEDS: SERTRALINE HCL 50 MG TABLET PO SCH (07:41)
--- NOTE | 2025-05-07 11:12 | Hospitalist Progress Note ---
Date of Service May 07, 2025 Assessment & Plan (1) Dementia: (2) Behavior safety risk: (3) CAD (coronary artery disease): (4) Hypertension: Plan 64yo male with early onset dementia who presented with increase in behavioral disturbance. Patient's ex- was worried about his safety as well as hers. He was admitted for placement at a memory care facility. MRI brain early 2024 noted chronic microvascular changes, but no hydrocephalus, ICH, or stroke. [address] John Benedict noted concern for cognitive impairment even at that time, possibly related to long-standing ADD & mood d/o. Continues to remain inpatient for safe disposition/placement on discharge; case management following. #Behavior safety risk | Dementia - behaviors improved/stable; pleasantly confused and not receiving any as needed antipsychotics, only an occasional as needed Ativan - Appreciate Psych consult - Adderall discontinued, started Abilify, Ativan, trazodone, clonidine - Increased Abilify to 5mg BID on 04/25 and can titrate up to max 15mg total daily dose if needed - Continue clonidine patch, Zoloft 150 mg daily, trazodone 100 mg HS, Ativan 0.5 mg TID PRN anxiety - Continue donepezil 10mg PO daily, memantine 10mg PO daily - these medications fell off the MAR on 05/05, reordered on 05/07 - Continue thiamine 100 mg daily, continue B12 1,000 mcg daily x 4-6 months - Would only use Zyprexa IM dose if severe agitation - 1:1 observation as needed #Hypertension - BPs controlled. Continue Amlodipine, Lisinopril, Metoprolol, clonidine patch #CAD | Hyperlipidemia - Continue asa, metoprolol, lisinopril, Crestor #Right knee OA - X-rays show OA. No current pain, diclofenac gel PRN #Tobacco use - Continue nicotine patch 14 mg transdermal daily VTE PPx: low risk, ambulating frequently in the hallways all day long Dispo: remains medically stable for discharge pending placement to memory care facility, appreciate CM assistance Extended all medications through the end of May Admission and Anticipated Discharge Date Admission Date: April 06, 2025 Supervising Physician Co-Signing Physician Notes PA Supervision Note: I did not personally see or examine the patient today, but I verified all iglesias points of ERIBERTO Diaz's assessment and plan with the following exceptions/additions: None Subjective Patient seen and evaluated in hallway when walking with his 1:1 sitter. He reports "I'm ok today. RN reports Tomas is at his baseline. He sleeps well overnight and has a strong appetite. Continuing to wait for placement, CM following. No acute complaints or concerns at this time. Physical Exam Physical Exam: General: No acute distress. Pleasantly confused but can be somewhat difficult to redirect. Cardiac: Well-perfused. Rate in 70s. Pulm: Normal respiratory effort. 99% on room air. Neuro: A&O x 1 (self only). No focal neurological deficits. 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 G30.0; F02.A18 Alzheimer's disease onset: early onset Dementia behavioral or psychological symptom: with other behavioral disturbance Dementia severity: mild Dementia type: Alzheimer's Behavior safety risk Z91.89 CAD (coronary artery disease) I25.10 Hypertension I10 (1) Dementia Alzheimer's disease onset: early onset Dementia behavioral or psychological symptom: with other behavioral disturbance Dementia severity: mild Dementia type: Alzheimer's Qualified Code(s): G30.0 - Alzheimer's disease with early onset; F02.A18 - Dementia in other diseases classified elsewhere, mild, with other behavioral disturbance
[2025-05-07] MEDS: MEMANTINE HCL 10 MG TAB PO SCH (12:30)
[2025-05-07] MEDS: DONEPEZIL HCL 10 MG TAB PO SCH (12:30)
[2025-05-07] MEDS: ACETAMINOPHEN 325 MG TAB PO PRN (14:21)
[2025-05-07] MEDS: LORazepam 0.5 MG TAB PO PRN (14:22)
[2025-05-08] MEDS: ROSUVASTATIN CALCIUM 20 MG TAB PO SCH (07:49)
[2025-05-08] MEDS: SERTRALINE HCL 50 MG TABLET PO SCH (07:50)
[2025-05-08] MEDS: ASPIRIN 81 MG ECTAB PO SCH (07:50)
--- NOTE | 2025-05-08 13:09 | Hospitalist Progress Note ---
"Date of Service May 08, 2025 Assessment & Plan (1) Dementia: (2) Behavior safety risk: (3) CAD (coronary artery disease): (4) Hypertension: Plan 64yo male with early onset dementia who presented with increase in behavioral disturbance. Patient's ex- was worried about his safety as well as hers. He was admitted for placement at a memory care facility. MRI brain early 2024 noted chronic microvascular changes, but no hydrocephalus, ICH, or stroke. [address] John Benedict noted concern for cognitive impairment even at that time, possibly related to long-standing ADD & mood d/o. Continues to remain inpatient for safe disposition/placement on discharge; case management following. #Behavior safety risk | Dementia - behaviors improved/stable; pleasantly confused and not receiving any as needed antipsychotics, only an occasional as needed Ativan - Appreciate Psych consult - Adderall discontinued, started Abilify, Ativan, trazodone, clonidine - Increased Abilify to 5mg BID on 04/25 and can titrate up to max 15mg total daily dose if needed - Continue clonidine patch, Zoloft 150 mg daily, trazodone 100 mg HS, Ativan 0.5 mg TID PRN anxiety. When ready for discharge, can likely send Ativan 0.5 mg scheduled at 1900 daily, as this is his most frequent dose timing - Continue donepezil 10mg PO daily, memantine 10mg PO daily - Continue thiamine 100 mg daily, continue B12 1,000 mcg daily x 4-6 months - Would only use Zyprexa IM dose if severe agitation - 1:1 observation as needed #Hypertension - BPs controlled. Continue Amlodipine, Lisinopril, Metoprolol, clonidine patch #CAD | Hyperlipidemia - Continue asa, metoprolol, lisinopril, Crestor #Right knee OA - X-rays show OA. No current pain, diclofenac gel PRN #Tobacco use - Continue nicotine patch 14 mg transdermal daily VTE PPx: low risk, ambulating frequently in the hallways all day long Dispo: remains medically stable for discharge pending placement to memory care facility, appreciate CM assistance Discussed discharge planning with case management Admission and Anticipated Discharge Date Admission Date: April 06, 2025 Supervising Physician Co-Signing Physician Notes ERIBERTO Supervision Note: I did not personally see or examine the patient today, but I verified all iglesias points of ERIBERTO Diaz's assessment and plan with the following exceptions/additions: None Subjective Patient seen and evaluated while walking the halls with his 1:1 sitter accompanying him. He is pleasantly confused, only oriented to self (baseline). He is excited for some ice cream when he returns to his room. He denies any acute complaints or concerns. Physical Exam Physical Exam: General: No acute distress. Pleasantly confused but can be somewhat difficult to redirect. Cardiac: Well-perfused. Rate in 70s. Pulm: Normal respiratory effort. 99% on room air. Neuro: A&O x 1 (self only). No focal neurological deficits. 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 G30.0; F02.A18 Alzheimer's disease onset: early onset Dementia behavioral or psychological symptom: with other behavioral disturbance Dementia severity: mild Dementia type: Alzheimer's Behavior safety risk Z91.89 CAD (coronary artery disease) I25.10 Hypertension I10 (1) Dementia Alzheimer's disease onset: early onset Dementia behavioral or psychological symptom: with other behavioral disturbance Dementia severity: mild Dementia type: Alzheimer's Qualified Code(s): G30.0 - Alzheimer's disease with early onset; F02.A18 - Dementia in other diseases classified elsewhere, mild, with other behavioral disturbance"
[2025-05-09] MEDS: REMOVE CLONIDINE PATCH SCH (08:21)
--- NOTE | 2025-05-09 08:35 | Hospitalist Progress Note ---
"Date of Service May 09, 2025 Assessment & Plan (1) Dementia: (2) Behavior safety risk: (3) CAD (coronary artery disease): (4) Hypertension: Plan 64yo male with early onset dementia who presented with increase in behavioral disturbance. Patient's ex- was worried about his safety as well as hers. He was admitted for placement at a memory care facility. MRI brain early 2024 noted chronic microvascular changes, but no hydrocephalus, ICH, or stroke. [address] John Benedict noted concern for cognitive impairment even at that time, possibly related to long-standing ADD & mood d/o. Continues to remain inpatient for safe disposition/placement on discharge; case management following. #Behavior safety risk | Dementia - behaviors improved/stable; pleasantly confused and not receiving any as needed antipsychotics, only an occasional as needed Ativan - Appreciate Psych consult - Adderall discontinued, started Abilify, Ativan, trazodone, clonidine - Increased Abilify to 5mg BID on 04/25 and can titrate up to max 15mg total daily dose if needed - Continue clonidine patch, Zoloft 150 mg daily, trazodone 100 mg HS, Ativan 0.5 mg TID PRN anxiety. When ready for discharge, can likely send Ativan 0.5 mg scheduled at 1900 daily, as this is his most frequent dose timing - Continue donepezil 10mg PO daily, memantine 10mg PO daily - Continue thiamine 100 mg daily, continue B12 1,000 mcg daily x 4-6 months - Would only use Zyprexa IM dose if severe agitation - 1:1 observation as needed #Hypertension - BPs controlled. Continue Amlodipine, Lisinopril, Metoprolol, clonidine patch #CAD | Hyperlipidemia - Continue asa, metoprolol, lisinopril, Crestor #Right knee OA - X-rays show OA. No current pain, diclofenac gel PRN #Tobacco use - Continue nicotine patch 14 mg transdermal daily VTE PPx: low risk, ambulating frequently in the hallways all day long Dispo: remains medically stable for discharge pending placement to memory care facility, appreciate CM assistance Reordered clonidine patch Admission and Anticipated Discharge Date Admission Date: April 06, 2025 Supervising Physician Co-Signing Physician Notes ERIBERTO Supervision Note: I did not personally see or examine the patient today, but I verified all iglesias points of ERIBERTO Diaz's assessment and plan with the following exceptions/additions: None Subjective Patient seen and evaluated in his hospital room. He is very preoccupied about contacting his to pick him up from the hospital today. Requires frequent redirection. Remains calm and cooperative with staff. He had removed his clonidine patch overnight. Reordered clonidine patch this morning. No additional complaints or concerns at this time. Physical Exam Physical Exam: General: No acute distress. Pleasantly confused but can be somewhat difficult to redirect. Cardiac: Well-perfused. Rate in 60s. Pulm: Normal respiratory effort. 100% on room air. Neuro: A&O x 1 (self only). No focal neurological deficits. 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 G30.0; F02.A18 Alzheimer's disease onset: early onset Dementia behavioral or psychological symptom: with other behavioral disturbance Dementia severity: mild Dementia type: Alzheimer's Behavior safety risk Z91.89 CAD (coronary artery disease) I25.10 Hypertension I10 (1) Dementia Alzheimer's disease onset: early onset Dementia behavioral or psychological symptom: with other behavioral disturbance Dementia severity: mild Dementia type: Alzheimer's Qualified Code(s): G30.0 - Alzheimer's disease with early onset; F02.A18 - Dementia in other diseases classified elsewhere, mild, with other behavioral disturbance"
[2025-05-09] MEDS: CHECK CLONIDINE PATCH PLACEMENT SCH (15:52)
--- NOTE | 2025-05-10 08:52 | Hospitalist Progress Note ---
Date of Service May 10, 2025 Assessment & Plan (1) Dementia: (2) Behavior safety risk: (3) CAD (coronary artery disease): (4) Hypertension: Plan 64yo male with early onset dementia who presented with increase in behavioral disturbance. Patient's ex- was worried about his safety as well as hers. He was admitted for placement at a memory care facility. MRI brain early 2024 noted chronic microvascular changes, but no hydrocephalus, ICH, or stroke. [address] John Benedict noted concern for cognitive impairment even at that time, possibly related to long-standing ADD & mood d/o. Continues to remain inpatient for safe disposition/placement on discharge; case management following. #Behavior safety risk | Dementia - behaviors improved/stable; pleasantly confused and not receiving any as needed antipsychotics, only an occasional as needed Ativan - Appreciate Psych consult - Adderall discontinued, started Abilify, Ativan, trazodone, clonidine - Increased Abilify to 5mg BID on 04/25 and can titrate up to max 15mg total daily dose if needed - Continue clonidine patch, Zoloft 150 mg daily, trazodone 100 mg HS, Ativan 0.5 mg TID PRN anxiety. When ready for discharge, can likely send Ativan 0.5 mg scheduled at 1900 daily, as this is his most frequent dose timing - Continue donepezil 10mg PO daily, memantine 10mg PO daily - Continue thiamine 100 mg daily, continue B12 1,000 mcg daily x 4-6 months - Would only use Zyprexa IM dose if severe agitation - 1:1 observation as needed #Hypertension - BPs controlled. Continue Amlodipine, Lisinopril, Metoprolol, clonidine patch #CAD | Hyperlipidemia - Continue asa, metoprolol, lisinopril, Crestor #Right knee OA - X-rays show OA. No current pain, diclofenac gel PRN #Tobacco use - Continue nicotine patch 14 mg transdermal daily VTE PPx: low risk, ambulating frequently in the hallways all day long Dispo: remains medically stable for discharge pending placement to memory care facility, appreciate CM assistance Reordered clonidine patch Admission and Anticipated Discharge Date Admission Date: April 06, 2025 Supervising Physician Co-Signing Physician Notes ERIBERTO Supervision Note: I did not personally see or examine the patient today, but I verified all iglesias points of ERIBERTO Diaz's assessment and plan with the following exceptions/additions: None Subjective Patient seen and evaluated in his room with 1:1 sitter present. He reports "I am having a better day than yesterday!" His spirits do appear improved compared to yesterday. No acute events overnight. He denies any acute complaints or concerns at this time. He reports his plan for the diet is to walk laps in the hallway and maybe play bowling. Continuing to wait for placement. Physical Exam Physical Exam: General: No acute distress. Pleasantly confused but can be somewhat difficult to redirect. Cardiac: Well-perfused. Rate in 80s. Pulm: Normal respiratory effort. 100% on room air. Neuro: A&O x 1 (self only). No focal neurological deficits. 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 G30.0; F02.A18 Alzheimer's disease onset: early onset Dementia behavioral or psychological symptom: with other behavioral disturbance Dementia severity: mild Dementia type: Alzheimer's Behavior safety risk Z91.89 CAD (coronary artery disease) I25.10 Hypertension I10 (1) Dementia Alzheimer's disease onset: early onset Dementia behavioral or psychological symptom: with other behavioral disturbance Dementia severity: mild Dementia type: Alzheimer's Qualified Code(s): G30.0 - Alzheimer's disease with early onset; F02.A18 - Dementia in other diseases classified elsewhere, mild, with other behavioral disturbance
[2025-05-10] MEDS: CHECK CLONIDINE PATCH PLACEMENT SCH (08:53)
[2025-05-10] MEDS: REMOVE CLONIDINE PATCH SCH (08:53)
--- NOTE | 2025-05-11 13:11 | Hospitalist Progress Note ---
Date of Service May 11, 2025 Assessment & Plan (1) Dementia: (2) Behavior safety risk: (3) CAD (coronary artery disease): (4) Hypertension: Plan 64yo male with early onset dementia who presented with increase in behavioral disturbance. Patient's ex- was worried about his safety as well as hers. He was admitted for placement at a memory care facility. MRI brain early 2024 noted chronic microvascular changes, but no hydrocephalus, ICH, or stroke. [address] John Benedict noted concern for cognitive impairment even at that time, possibly related to long-standing ADD & mood d/o. Continues to remain inpatient for safe disposition/placement on discharge; case management following. #Behavior safety risk | Dementia - behaviors improved/stable; pleasantly confused and not receiving any as needed antipsychotics, only an occasional as needed Ativan - Appreciate Psych consult - Adderall discontinued, started Abilify, Ativan, trazodone, clonidine - Increased Abilify to 5mg BID on 04/25 and can titrate up to max 15mg total daily dose if needed - Continue clonidine patch, Zoloft 150 mg daily, trazodone 100 mg HS, Ativan 0.5 mg TID PRN anxiety. When ready for discharge, can likely send Ativan 0.5 mg scheduled at 1900 daily, as this is his most frequent dose timing - Continue donepezil 10mg PO daily, memantine 10mg PO daily - Continue thiamine 100 mg daily, continue B12 1,000 mcg daily x 4-6 months - Would only use Zyprexa IM dose if severe agitation - 1:1 observation as needed #Hypertension - BPs controlled. Continue Amlodipine, Lisinopril, Metoprolol, clonidine patch #CAD | Hyperlipidemia - Continue asa, metoprolol, lisinopril, Crestor #Right knee OA - X-rays show OA. No current pain, diclofenac gel PRN #Tobacco use - Continue nicotine patch 14 mg transdermal daily VTE PPx: low risk, ambulating frequently in the hallways all day long Dispo: Medically stable for discharge. Anticipate discharge to [facility] in [place] on Tuesday 05/15. Case management following. Discussed discharge planning with case management Admission and Anticipated Discharge Date Admission Date: April 06, 2025 Supervising Physician Co-Signing Physician Notes PA Supervision Note: I did not personally see or examine the patient today, but I verified all iglesias points of ERIBERTO Diaz's assessment and plan with the following exceptions /additions: None Subjective Patient seen and evaluated in bedside chair with his 1:1 sitter present. He reports "today is great! I have some chocolate ice cream here." No acute events overnight. He denies any acute complaints or concerns at this time. Continuing to wait for placement. Review of Systems Review of Systems: All systems reviewed & are unremarkable except as noted in Subjective Physical Exam Physical Exam: General: No acute distress. Pleasantly confused but can be somewhat difficult to redirect. Cardiac: Well-perfused. Rate in 70s. Pulm: Normal respiratory effort. 95% on room air. Neuro: A&O x 1 (self only). No focal neurological deficits. 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 G30.0; F02.A18 Alzheimer's disease onset: early onset Dementia behavioral or psychological symptom: with other behavioral disturbance Dementia severity: mild Dementia type: Alzheimer's Behavior safety risk Z91.89 CAD (coronary artery disease) I25.10 Hypertension I10 (1) Dementia Alzheimer's disease onset: early onset Dementia behavioral or psychological symptom: with other behavioral disturbance Dementia severity: mild Dementia type: Alzheimer's Qualified Code(s): G30.0 - Alzheimer's disease with early onset; F02.A18 - Dementia in other diseases classified elsewhere, mild, with other behavioral disturbance
[2025-05-12] MEDS ORDERED: REMOVE CLONIDINE PATCH SCH (11:15)
[2025-05-12] MEDS ORDERED: CHECK CLONIDINE PATCH PLACEMENT SCH (16:00)
--- NOTE | 2025-05-12 18:15 | Hospitalist Progress Note ---
Date of Service May 12, 2025 Assessment & Plan (1) Dementia: Plan: Continue supportive care with gentle re-direction, frequent re-assurance, aripiprazole 5mg PO bid, donepezil 10mg PO daily, memantine 10mg PO qam. (2) Behavior safety risk: Plan: Continue 1:1 monitor 24 hours a day through patient's discharge to memory care, lock-down unit on Wednesday (05/15/2025). (3) CAD (coronary artery disease): Plan: Continue secondary prophylaxis against CAD utilizing ASA 81mg PO daily and rosuvastatin 20mg PO daily. (4) Hypertension: Plan: Continue home-scheduled amlodipine 10mg PO daily, clonidine 0.1mg transdermal patch q7d, lisinopril 5mg PO daily, metoprolol succinate 50mg PO daily. Plan 64yo male with early onset dementia who presented with increase in behavioral disturbance. Patient's ex- was worried about his safety as well as hers. He was admitted for placement at a memory care facility. MRI brain early 2024 noted chronic microvascular changes, but no hydrocephalus, ICH, or stroke. [address] John Benedict noted concern for cognitive impairment even at that time, possibly related to long-standing ADD & mood d/o. Continues to remain inpatient for safe disposition/placement on discharge; case management following. #Behavior safety risk | Dementia - behaviors improved/stable; pleasantly confused and not receiving any as needed antipsychotics, only an occasional as needed Ativan - Appreciate Psych consult - Adderall discontinued, started Abilify, Ativan, trazodone, clonidine - Increased Abilify to 5mg BID on 04/25 and can titrate up to max 15mg total daily dose if needed - Continue clonidine patch, Zoloft 150 mg daily, trazodone 100 mg HS, Ativan 0.5 mg TID PRN anxiety. When ready for discharge, can likely send Ativan 0.5 mg scheduled at 1900 daily, as this is his most frequent dose timing - Continue donepezil 10mg PO daily, memantine 10mg PO daily - Continue thiamine 100 mg daily, continue B12 1,000 mcg daily x 4-6 months - Would only use Zyprexa IM dose if severe agitation - 1:1 observation as needed #Hypertension - BPs controlled. Continue Amlodipine, Lisinopril, Metoprolol, clonidine patch #CAD | Hyperlipidemia - Continue asa, metoprolol, lisinopril, Crestor #Right knee OA - X-rays show OA. No current pain, diclofenac gel PRN #Tobacco use - Continue nicotine patch 14 mg transdermal daily VTE PPx: low risk, ambulating frequently in the hallways all day long Dispo: Medically stable for discharge. Anticipate discharge to [facility] in [place] on Tuesday 05/15. Case management following. Discussed discharge planning with case management Admission and Anticipated Discharge Date Admission Date: April 06, 2025 Subjective "I am fine. They say I am leaving here on Wednesday (05/15/2025). Finally." Review of Systems Constitutional: Negative for antecedent/coincident fevers, chills, diaphoresis, cough, wheeze, sore throat, hemoptysis, shortness of breath, dyspnea on exertion, chest pains, palpitations, pleurisy, nausea, vomiting, diarrhea, abdominal pain, pelvic pain, hematemesis, hematochezia, melena, hematuria, dysuria, frequency, urgency, flank pain, headaches, dizziness, lightheadedness, visual changes, hearing changes, weakness, falls, syncope, trauma, travel history, sick contacts, or food/drug ingestions novel or new. All other review of systems are reported as negative by the patient on 05/12/2025. Physical Exam Constitutional: General: Comfortable, cooperative, coherent. Wide awake and alert. Not confused, lethargic, or obtunded. Patient speaks in complete, fluent, and articulate sentences without pause, interruption, cough, or wheeze. HEENT: Normocephalic, atraumatic. Extra-ocular muscles intact. Pupils equally round and reactive to light. No nystagmus, gaze paresis, anisocoria, miosis, mydriasis, hyphema, chemosis, scleral injection, conjunctivitis, or pterygium. No otorrhea or rhinorrhea. No pharyngeal discharge or exudate. Neck: Supple, no stridor or bruit. Jugular venous pressure is estimated to be 3 cm above the sternal angle of Rc, which is, by definition, 5 cm above the level of the right atrium. Hence, jugular venous pressure of 8 cm is not elevated on 05/12/2025. Lymphatics: No anterior/posterior cervical, infraclavicular, supraclavicular, axillary, epitrochlear, or inguinal adenopathy. Chest: Symmetric rise and fall with respirations. Non-tender to palpation. Lungs: Clear to auscultation and percussion. No audible expiratory wheeze, egophony, pectoriloquy, increase in tactile fremitus, or flatness/dullness to percussion at the bases. Heart: Regular rate and rhythm. S1 and S2 noted. No S3 or S4 summation gallop. No tripartite friction rub. Grade II/ early systolic murmur at left lower sternal border without radiation to the carotids, axilla, or back, and which remains invariant in regards to the respiratory cycle. Abdomen: Soft, non-tender, non-distended. No rebound, guarding, Mendez's sign, or organomegaly. Bowel sounds auscultated in all 4 quadrants. Extremities: No clubbing, cyanosis, or edema. 2+ pedal pulses bilaterally. Skin: No decubitus ulcer, exanthem, or enanthem. Urology: No cardoza catheter. No purewick. No urethral discharge. Neurology: Alert and oriented in regards to person, place, time, and situation. DTR+. 5/5 motor strength in all 4 extremities, both proximally and distally. Psychiatry: No flat affect. No monotone voice. Smiles appropriately. 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 G30.0; F02.A18 Dementia type: Alzheimer's Alzheimer's disease onset: early onset Dementia severity: mild Dementia behavioral or psychological symptom: with other behavioral disturbance Behavior safety risk Z91.89 CAD (coronary artery disease) I25.10 Hypertension I10 (1) Dementia Dementia type: Alzheimer's Alzheimer's disease onset: early onset Dementia severity: mild Dementia behavioral or psychological symptom: with other behavioral disturbance Qualified Code(s): G30.0 - Alzheimer's disease with early onset; F02.A18 - Dementia in other diseases classified elsewhere, mild, with other behavioral disturbance
[2025-05-13] MEDS ORDERED: INFLUENZA VACC TS2025-26(6m+)/PF (IIV3) 0.5mL Syr IM ONE (10:00)
--- NOTE | 2025-05-13 18:30 | Hospitalist Progress Note ---
Date of Service May 13, 2025 Assessment & Plan (1) Dementia: Plan: Continue supportive care with gentle re-direction, frequent re-assurance, aripiprazole 5mg PO bid, donepezil 10mg PO daily, memantine 10mg PO qam. (2) Behavior safety risk: Plan: Continue 1:1 monitor 24 hours a day through patient's discharge to [facility] ([place], [place]) on Wednesday (05/15/2025). (3) CAD (coronary artery disease): Plan: Continue secondary prophylaxis against CAD utilizing ASA 81mg PO daily and rosuvastatin 20mg PO daily. (4) Hypertension: Plan: Continue home-scheduled amlodipine 10mg PO daily, clonidine 0.1mg transdermal patch q7d, lisinopril 5mg PO daily, metoprolol succinate 50mg PO daily. Plan 64yo male with early onset dementia who presented with increase in behavioral disturbance. Patient's ex- was worried about his safety as well as hers. He was admitted for placement at a memory care facility. MRI brain early 2024 noted chronic microvascular changes, but no hydrocephalus, ICH, or stroke. [address] John Benedict noted concern for cognitive impairment even at that time, possibly related to long-standing ADD & mood d/o. Continues to remain inpatient for safe disposition/placement on discharge; case management following. #Behavior safety risk | Dementia - behaviors improved/stable; pleasantly confused and not receiving any as needed antipsychotics, only an occasional as needed Ativan - Appreciate Psych consult - Adderall discontinued, started Abilify, Ativan, trazodone, clonidine - Increased Abilify to 5mg BID on 04/25 and can titrate up to max 15mg total daily dose if needed - Continue clonidine patch, Zoloft 150 mg daily, trazodone 100 mg HS, Ativan 0.5 mg TID PRN anxiety. When ready for discharge, can likely send Ativan 0.5 mg scheduled at 1900 daily, as this is his most frequent dose timing - Continue donepezil 10mg PO daily, memantine 10mg PO daily - Continue thiamine 100 mg daily, continue B12 1,000 mcg daily x 4-6 months - Would only use Zyprexa IM dose if severe agitation - 1:1 observation as needed #Hypertension - BPs controlled. Continue Amlodipine, Lisinopril, Metoprolol, clonidine patch #CAD | Hyperlipidemia - Continue asa, metoprolol, lisinopril, Crestor #Right knee OA - X-rays show OA. No current pain, diclofenac gel PRN #Tobacco use - Continue nicotine patch 14 mg transdermal daily VTE PPx: low risk, ambulating frequently in the hallways all day long Dispo: Medically stable for discharge. Anticipate discharge to [facility] in [place] on Tuesday 05/15. Case management following. Discussed discharge planning with case management Admission and Anticipated Discharge Date Admission Date: April 06, 2025 Subjective "I am fine. I'm gonna [facility] place (e.g., [facility]). I've made so many friends these past 37 days. I'm a little nervous about going to [facility] [place] on Wednesday (05/15/2025)." Review of Systems Constitutional: Negative for antecedent/coincident fevers, chills, diaphoresis, cough, wheeze, sore throat, hemoptysis, shortness of breath, dyspnea on exertion, chest pains, palpitations, pleurisy, nausea, vomiting, diarrhea, abdominal pain, pelvic pain, hematemesis, hematochezia, melena, hematuria, dysuria, frequency, urgency, flank pain, headaches, dizziness, lightheadedness, visual changes, hearing changes, weakness, falls, syncope, trauma, travel history, sick contacts, or food/drug ingestions novel or new. All other review of systems are reported as negative by the patient on 05/13/2025. Physical Exam Constitutional: General: Comfortable, cooperative, coherent. Wide awake and alert. Not confused, lethargic, or obtunded. Patient speaks in complete, fluent, and articulate sentences without pause, interruption, cough, or wheeze. HEENT: Normocephalic, atraumatic. Extra-ocular muscles intact. Pupils equally round and reactive to light. No nystagmus, gaze paresis, anisocoria, miosis, mydriasis, hyphema, chemosis, scleral injection, conjunctivitis, or pterygium. No otorrhea or rhinorrhea. No pharyngeal discharge or exudate. Neck: Supple, no stridor or bruit. Jugular venous pressure is estimated to be 3 cm above the sternal angle of Rc, which is, by definition, 5 cm above the level of the right atrium. Hence, jugular venous pressure of 8 cm is not elevated on 05/13/2025. Lymphatics: No anterior/posterior cervical, infraclavicular, supraclavicular, axillary, epitrochlear, or inguinal adenopathy. Chest: Symmetric rise and fall with respirations. Non-tender to palpation. Lungs: Clear to auscultation and percussion. No audible expiratory wheeze, egophony, pectoriloquy, increase in tactile fremitus, or flatness/dullness to percussion at the bases. Heart: Regular rate and rhythm. S1 and S2 noted. No S3 or S4 summation gallop. No tripartite friction rub. Grade II/ early systolic murmur at left lower sternal border without radiation to the carotids, axilla, or back, and which remains invariant in regards to the respiratory cycle. Abdomen: Soft, non-tender, non-distended. No rebound, guarding, Mendez's sign, or organomegaly. Bowel sounds auscultated in all 4 quadrants. Extremities: No clubbing, cyanosis, or edema. 2+ pedal pulses bilaterally. Skin: No decubitus ulcer, exanthem, or enanthem. Urology: No cardoza catheter. No purewick. No urethral discharge. Neurology: Alert and oriented in regards to person, place, time, and situation. DTR+. 5/5 motor strength in all 4 extremities, both proximally and distally. Psychiatry: No flat affect. No monotone voice. Smiles appropriately. 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 G30.0; F02.A18 Dementia type: Alzheimer's Alzheimer's disease onset: early onset Dementia severity: mild Dementia behavioral or psychological symptom: with other behavioral disturbance Behavior safety risk Z91.89 CAD (coronary artery disease) I25.10 Hypertension I10 (1) Dementia Dementia type: Alzheimer's Alzheimer's disease onset: early onset Dementia severity: mild Dementia behavioral or psychological symptom: with other behavioral disturbance Qualified Code(s): G30.0 - Alzheimer's disease with early onset; F02.A18 - Dementia in other diseases classified elsewhere, mild, with other behavioral disturbance
--- NOTE | 2025-05-14 19:48 | Hospitalist Progress Note ---
Date of Service May 14, 2025 Assessment & Plan (1) Dementia: Plan: Continue supportive care with gentle re-direction, frequent re-assurance, aripiprazole 5mg PO bid, donepezil 10mg PO daily, memantine 10mg PO qam. (2) Behavior safety risk: Plan: Continue 1:1 monitor 24 hours a day through patient's discharge to [facility] ([place], [place]) on Wednesday (05/15/2025). (3) CAD (coronary artery disease): Plan: Continue secondary prophylaxis against CAD utilizing ASA 81mg PO daily and rosuvastatin 20mg PO daily. (4) Hypertension: Plan: Continue home-scheduled amlodipine 10mg PO daily, clonidine 0.1mg transdermal patch q7d, lisinopril 5mg PO daily, metoprolol succinate 50mg PO daily. Plan 64yo male with early onset dementia who presented with increase in behavioral disturbance. Patient's ex- was worried about his safety as well as hers. He was admitted for placement at a memory care facility. MRI brain early 2024 noted chronic microvascular changes, but no hydrocephalus, ICH, or stroke. [address] John Benedict noted concern for cognitive impairment even at that time, possibly related to long-standing ADD & mood d/o. Continues to remain inpatient for safe disposition/placement on discharge; case management following. #Behavior safety risk | Dementia - behaviors improved/stable; pleasantly confused and not receiving any as needed antipsychotics, only an occasional as needed Ativan - Appreciate Psych consult - Adderall discontinued, started Abilify, Ativan, trazodone, clonidine - Increased Abilify to 5mg BID on 04/25 and can titrate up to max 15mg total daily dose if needed - Continue clonidine patch, Zoloft 150 mg daily, trazodone 100 mg HS, Ativan 0.5 mg TID PRN anxiety. When ready for discharge, can likely send Ativan 0.5 mg scheduled at 1900 daily, as this is his most frequent dose timing - Continue donepezil 10mg PO daily, memantine 10mg PO daily - Continue thiamine 100 mg daily, continue B12 1,000 mcg daily x 4-6 months - Would only use Zyprexa IM dose if severe agitation - 1:1 observation as needed #Hypertension - BPs controlled. Continue Amlodipine, Lisinopril, Metoprolol, clonidine patch #CAD | Hyperlipidemia - Continue asa, metoprolol, lisinopril, Crestor #Right knee OA - X-rays show OA. No current pain, diclofenac gel PRN #Tobacco use - Continue nicotine patch 14 mg transdermal daily VTE PPx: low risk, ambulating frequently in the hallways all day long Dispo: Medically stable for discharge. Anticipate discharge to [facility] in [place] on Tuesday 05/15. Case management following. Discussed discharge planning with case management Admission and Anticipated Discharge Date Admission Date: April 06, 2025 Subjective "I am fine. I'm gonna miss this place (e.g., [facility]). I've made so many friends these past 37 days. I'm a little nervous about going to [facility] [place] on Wednesday (05/15/2025)." Review of Systems Constitutional: Negative for antecedent/coincident fevers, chills, diaphoresis, cough, wheeze, sore throat, hemoptysis, chest pains, palpitations, pleurisy, nausea, vomiting, diarrhea, abdominal pain, pelvic pain, hematemesis, hematochezia, melena, hematuria, dysuria, frequency, urgency, headaches, dizziness, lightheadedness, visual changes, hearing changes, weakness, falls, syncope, trauma, travel history, sick contacts, or food/drug ingestions novel or new. All other review of systems are reported as negative by the patient on 05/14/2025. Physical Exam Constitutional: General: Comfortable, cooperative, coherent. Wide awake and alert. Not confused, lethargic, or obtunded. Patient speaks in complete, fluent, and articulate sentences without pause, interruption, cough, or wheeze. HEENT: Normocephalic, atraumatic. Extra-ocular muscles intact. Pupils equally round and reactive to light. No nystagmus, gaze paresis, anisocoria, miosis, mydriasis, hyphema, chemosis, scleral injection, conjunctivitis, or pterygium. No otorrhea or rhinorrhea. No pharyngeal discharge or exudate. Neck: Supple, no stridor or bruit. Jugular venous pressure is estimated to be 3 cm above the sternal angle of Rc which is, by definition, 5 cm above the level of the right atrium. Hence, jugular venous pressure of 8 cm is not elevated on 05/14/2025. Lymphatics: No anterior/posterior cervical, infraclavicular, supraclavicular, axillary, epitrochlear, or inguinal adenopathy. Chest: Symmetric rise and fall with respirations. Non-tender to palpation. Lungs: Clear to auscultation and percussion. No audible expiratory wheeze, egophony, pectoriloquy, increase in tactile fremitus, or flatness/dullness to percussion at the bases. Heart: Regular rate and rhythm. S1 and S2 noted. No S3 or S4 summation gallop. No tripartite friction rub. Grade II/ early systolic murmur at left lower sternal border without radiation to the carotids, axilla, or back, and which remains invariant in regards to the respiratory cycle. Abdomen: Soft, non-tender, non-distended. No rebound, guarding, Mendez's sign, or organomegaly. Bowel sounds auscultated in all 4 quadrants. Extremities: No clubbing, cyanosis, or edema. 2+ pedal pulses bilaterally. Skin: No decubitus ulcer, exanthem, or enanthem. Urology: No cardoza catheter. No purewick. No urethral discharge. Neurology: Alert and oriented in regards to person, place, time, and situation. DTR+. 5/5 motor strength in all 4 extremities, both proximally and distally. Psychiatry: No flat affect. No monotone voice. Smiles appropriately. 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 G30.0; F02.A18 Dementia type: Alzheimer's Alzheimer's disease onset: early onset Dementia severity: mild Dementia behavioral or psychological symptom: with other behavioral disturbance Behavior safety risk Z91.89 CAD (coronary artery disease) I25.10 Hypertension I10 (1) Dementia Dementia type: Alzheimer's Alzheimer's disease onset: early onset Dementia severity: mild Dementia behavioral or psychological symptom: with other b ehavioral disturbance Qualified Code(s): G30.0 - Alzheimer's disease with early onset; F02.A18 - Dementia in other diseases classified elsewhere, mild, with other behavioral disturbance
[2025-05-15 08:18] VITALS: O2SAT 99
--- NOTE | 2025-05-15 09:35 | Discharge Summary ---
"Discharge Summary Date of Service May 15, 2025 Principal Dx & Hospital Course #1 = Principal Diagnosis (1) Dementia: Continue supportive care with gentle re-direction, frequent re-assurance, aripiprazole 5mg PO bid, donepezil 10mg PO daily, memantine 10mg PO qam. (2) Behavior safety risk: Continue 1:1 monitor 24 hours a day through patient's discharge to [facility] ([place], [place]) on Wednesday (05/15/2025). (3) CAD (coronary artery disease): Continue secondary prophylaxis against CAD utilizing ASA 81mg PO daily and rosuvastatin 20mg PO daily. (4) Hypertension: Continue home-scheduled amlodipine 10mg PO daily, clonidine 0.1mg transdermal patch q7d, lisinopril 5mg PO daily, metoprolol succinate 50mg PO daily. Plan 64yo male with early onset dementia who presented with increase in behavioral disturbance. Patient's ex- was worried about his safety as well as hers. He was admitted for placement at a memory care facility. MRI brain early 2024 noted chronic microvascular changes, but no hydrocephalus, ICH, or stroke. [address] John Benedict noted concern for cognitive impairment even at that time, possibly related to long-standing ADD & mood d/o. Continues to remain inpatient for safe disposition/placement on discharge; case management following. #Behavior safety risk | Dementia - behaviors improved/stable; pleasantly confused and not receiving any as needed antipsychotics, only an occasional as needed Ativan - Appreciate Psych consult - Adderall discontinued, started Abilify, Ativan, trazodone, clonidine - Increased Abilify to 5mg BID on 04/25 and can titrate up to max 15mg total daily dose if needed - Continue clonidine patch, Zoloft 150 mg daily, trazodone 100 mg HS, Ativan 0.5 mg TID PRN anxiety. When ready for discharge, can likely send Ativan 0.5 mg scheduled at 1900 daily, as this is his most frequent dose timing - Continue donepezil 10mg PO daily, memantine 10mg PO daily - Continue thiamine 100 mg daily, continue B12 1,000 mcg daily x 4-6 months - Would only use Zyprexa IM dose if severe agitation - 1:1 observation as needed #Hypertension - BPs controlled. Continue Amlodipine, Lisinopril, Metoprolol, clonidine patch #CAD | Hyperlipidemia - Continue asa, metoprolol, lisinopril, Crestor #Right knee OA - X-rays show OA. No current pain, diclofenac gel PRN #Tobacco use - Continue nicotine patch 14 mg transdermal daily VTE PPx: low risk, ambulating frequently in the hallways all day long Dispo: Medically stable for discharge. Anticipate discharge to [facility] in [place] on Tuesday 05/15. Case management following. Discussed discharge planning with case management Admission HPI Per Admitting Provider 64yo male with history of CAD, HTN, HLP and Alzheimer's dementia presenting with worsening behavioral disturbances. Patient is unable to provide history. Family not at bedside. Per record review, patient left his home last week and his ex- found him hiding behind a davila. Ex- serves as his primary caregiver. She reports that he is a danger to himself and possibly to her. In the ER he is afebrile, HD stable He is unaware as to why he is here and wishes to return home Discharge Exam GENERAL APPEARANCE NAD, activity normal for age, well developed/ well nourished, no cyanosis, pallor, or diaphoresis. EYES lids/conjunctiva normal. EARS/NOSE/THROAT Mucous membranes moist, nares normal, lips/teeth normal uvula midline without oral pharyngeal erythema, exudate or swelling TMs normal bilaterally. No lymphangitis/lymphedema. HEAD/NECK normocephalic atraumatic, no facial trauma, neck is supple. RESPIRATORY respiratory effort normal, speaks in full sentences, no tripod position, no accessory muscle use. Lungs clear to auscultation without rhonchi, wheezes, rales CARDIAC Regular rate and rhythm, no edema. ABDOMINAL Soft, ND/NT. No evidence of fluid wave. No pulsatile masses on exam, rebound tenderness, Mendez sign or pain over Mcburney's point. MUSCLES/EXTREMITIES No abnormal range of motion, no swelling. SKIN Warm, pink and dry. No rashes, dermatoses, petechiae or lesions. NEUROLOGICAL Speech is clear and appropriate. Normal level of consciousness. Gait and coordination are normal. 5/5 strength in all extremities. PSYCH Normal mood and affect. Judgement/competence is appropriate Discharge Plan Discharge Items Patient Disposition: Transfer Group Home Fac Reason For Visit: [facility] [place] Discharge Diagnosis: dementia Condition on Discharge: Fair Activity: Resume your previous activity Non-emergency contact: Primary Care Provider and Psychiatrist Call non-emergency contact if: you have any medication questions, your symptoms worsen and you have a fever Follow-up/Referrals: Estefania Blanca PA-C [Primary Care Provider] - Diet: Heart Healthy, Low Fat and Low Sodium (2gm) Addtl Attending Provider Instructions: follow-up with your primary care doctor and psychiatrist within 1 week Pending Studies at Discharge: No Stand-Alone Forms: My [facility] [employer] Skilled Items Patient informed of condition?: Yes DNR: No Discharge Level of Care: Skilled Communicable Disease: No Discharge Prognosis: Stable Lines: None Urinary Catheter: No Medications and DC Order Prescriptions: New aripiprazole [Abilify] 5 mg Tablet 2.5 mg PO BID Qty: 30 0RF lorazepam 0.5 mg Tablet 0.5 mg PO TID PRN (Reason: anxiety) Qty: 14 0RF clonidine 0.1 mg/24 hr Patch Weekly 1 patch transdermal Q7D Qty: 30 0RF Continued donepezil 10 mg tablet 10 mg PO QPM memantine 10 mg tablet 10 mg PO QAM amlodipine 10 mg tablet 10 mg PO DAILY rosuvastatin 20 mg tablet 20 mg PO DAILY aspirin 81 mg tablet,delayed release (DR/EC) 81 mg PO DAILY trazodone 100 mg tablet 100 mg PO QPM sertraline 50 mg tablet 50 mg PO QAM sertraline 50 mg tablet 100 mg PO HS metoprolol succinate 50 mg tablet extended release 24 hr 0 mg PO DAILY Patient Comments: Pharmacy confirmed last filled 09/2024 x30 day supply and a deactivate on the script. However, caregiver states that she has been giving him this everyday and just pours the new bottle into the old bottle. Original Directions: 50mg by mouth daily. 04/06/25 lisinopril 5 mg tablet 0 mg PO DAILY Patient Comments: Pharmacy confirmed last filled 12/2024 x30 day supply and a deactivate on the script. However, caregiver states that she has been giving him this everyday and just pours the new bottle into the old bottle. Original Directions: 5mg by mouth daily. 04/06/25 Discharge Orders: Discharge Order (Routine); Ordered 05/15/25 Ordered By: Faustino Hayden Admission Data Admit Date/Time: 04/06/25 01:09 Attending Provider: Faustino Hayden Admit Provider: Jadyn Garza Primary Care Provider: Estefania Blanca Other Providers: Jadyn Garza; [place],[facility]; [place] Stay Data Consultations 04/06/25 00:06 ED Decision to Admit Stat Pending Results Patient Have Any Pending Studies at Discharge: No Discharge Instructions Given to Patient (Per Discharging Provider) follow-up with your primary care doctor and psychiatrist within 1 week Total Time Total Time Spent Total Time Spent (In Minutes): 50 Coding Level of Care Code 13765 INP/OBS DISCH >30 MIN Diagnoses 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 G30.0; F02.A18 Dementia type: Alzheimer's Alzheimer's disease onset: early onset Dementia severity: mild Dementia behavioral or psychological symptom: with other behavioral disturbance Behavior safety risk Z91.89 CAD (coronary artery disease) I25.10 Hypertension I10"
[2025-05-15 11:23] VITALS: BP 161/70; PULSE 70; RESP 20; TEMP 98.1
[2025-05-19] MEDS ORDERED: REMOVE CLONIDINE PATCH SCH (11:30)
== END 2025-05-15 12:49 | DRG 57 ==
LOC: ED 22:52 → EDINP 04-06 01:09 → SUATTDRO 04-06 01:09 → 3E 04-06 02:31